=== PATIENT | female | born 1955 | race Caucasian/White ===

== ENCOUNTER 2017-01-03 11:35 | Emergency (ER) ==
[2017-01-03 11:40] VITALS: BP 164/95; TEMP 98.2; BMI 33.6
[2017-01-03 12:20] LABS: BASOPHILS # (AUTO) 0.1 K/uL (0-0.2); BASOPHILS % (AUTO) 0.9 % (0.0-3.0); EOSINOPHILS # (AUTO) 0.5 K/ul (0.0-0.7); EOSINOPHILS % (AUTO) 5.8 % (0.0-7.0); HEMATOCRIT 33.1 % (37.0-47.0); HEMOGLOBIN 11.2 g/dl (12.0-16.0); IMMATURE GRANULOCYTE % (AUTO) 3.9 % (0.0-5.0); LYMPHOCYTES # (AUTO) 1.9 K/uL (0.60-3.4); LYMPHOCYTES % (AUTO) 24.2 (10.0-50.0); MEAN CORPUSCULAR HEMOGLOBIN 31.1 pg (27.0-31.0); MEAN CORPUSCULAR HGB CONC 33.8 (31.8-35.4); MEAN CORPUSCULAR VOLUME 91.9 fl (81.0-99.0); MONOCYTES # (AUTO) 0.7 K/uL (0.4-2.0); MONOCYTES % (AUTO) 9.3 (0-10); NEUTROPHILS # (AUTO) 4.3 K/ul (2.0-6.9); NEUTROPHILS % (AUTO) 55.9; PLATELET COUNT 270 10^3/uL (140-440); WHITE BLOOD COUNT 7.74 K/ul (4.6-10.2)
--- NOTE | 2017-01-03 12:32 | DI ---
EXAM: CHEST FRONTAL AND LATERAL VIEWS HISTORY: Cough. COMPARISON: 06/08/2012 FINDINGS: Heart size and mediastinal contour remain within normal limits. Left calcified granulom a. No acute infiltrates are seen. There is no consolidation, visible pleural fluid or pneumothorax. Bones reveal no acute fracture. IMPRESSION: No acute cardiopulmonary process.
[2017-01-03 12:43] LABS: BILIRUBIN,URINE Negative (NEGATIVE); KETONES,URINE Negative (NEGATIVE); LEUKOCYTE ESTERASE ,URINE 1+ (NEGATIVE); NITRITE,URINE Positive (NEGATIVE); PROTEIN,URINE Negative (NEGATIVE); URINE, BLOOD Negative (NEGATIVE)
[2017-01-03 12:47] LABS: ADD URINE MICROSCOPIC YES
[2017-01-03 12:48] LABS: BACTERIA,URINE 1+ (NOT PRESENT)
[2017-01-03 12:51] LABS: ALANINE AMINOTRANSFERASE 18 U/L (12-78); ALBUMIN 3.5 g/dL (3.4-5.0); ALKALINE PHOSPHATASE 65 U/L (53-141); ANION GAP 15.9; ASPARTATE AMINO TRANSFERASE 10 U/L (15-37); BILIRUBIN,TOTAL 0.21 mg/dL (0.00-1.20); BLOOD UREA NITROGEN 30 mg/dL (7-18); BUN/CREATININE RATIO 23.07; CALCIUM 10.3 mg/dL (8.2-10.2); CARBON DIOXIDE 32 mmol/L (23-31); CHLORIDE 94 mmol/L (98-107); CREATINE KINASE 60 U/L; GLUCOSE 460 mg/dL (82-115); POTASSIUM 3.9 mmol/L (3.5-5.10); SODIUM 138 mmol/L (136-145)
[2017-01-03] MEDS ORDERED: ROCEPHIN IM STA (13:05)
[2017-01-03] MEDS ORDERED: LIDOCAINE 1 % AMP 5 ML (SUTURES) IM STA (13:05)
[2017-01-03] MEDS ORDERED: HUMULIN R SUBCUT STA (13:06)
--- NOTE | 2017-01-03 13:11 | ED.PDOC ---
General ED Provider: Dr. BINTA SHRESTHA Chief Complaint: Diabetes Stated Complaint: diabetes Time Seen by Physician: 11:45 Mode of Arrival: Walk-In Information Source: Patient, Family Exam Limitations: No limitations Primary Care Provider: SANJIV MACDONALD Nursing and Triage Documentation Reviewed and Agree: Yes Endocrine Complaint Exam - Diabetic Complication Complaint/Exam Onset/Duration: this morning Symptoms Are: Still present Timing: Constant Initial Severity: Moderate Current Severity: Moderate Character: Alert Aggravating: Reports: None Alleviating: Reports: None Associated Signs and Symptoms: Denies: Decreased LOC, Polydipsia, Polyuria, Polyphagia, Weight loss, Abdominal pain, Nausea, Vomiting, Fever, Diaphoresis, Fruity breath Related History: Reports: Similar episode Cardiac Risk Factors: Reports: Hypertension CVA Risk Factors: Reports: Hypertension Serious Bacterial Infection Risk Factors: Reports: None Acetone on Breath: No Dry Mucous Membranes: No Kussmaul Respirations: No Glascow Coma Scale (see protocol): 15 Meningeal Signs: No Focal Weakness: None Focal Sensory Loss: None Gait: Normal Nystagmus Present: No Gag Reflex Present: Yes Finger to Nose: Normal Babinski Sign: Negative Right, Negative Left Differential Diagnoses: Diabetic Ketoacidosis, Hyperosmolar State, Pneumonia, Other (uti) Review of Systems - Review Of Systems Constitutional: Reports: No symptoms Eyes: Reports: No symptoms Ears, Nose, Mouth, Throat: Reports: No symptoms Respiratory: Reports: No symptoms Cardiac: Reports: No symptoms GI: Reports: No symptoms : Reports: Frequency, Urgency Musculoskeletal: Reports: No symptoms Skin: Reports: No symptoms Neurological: Reports: No symptoms Endocrine: Reports: No symptoms Hematologic/Lymphatic: Reports: No symptoms All Other Systems: Reviewed and Negative Past Medical History - Past Medical History Endocrine: Reports: DM 2 Cardiovascular: Reports: Hypertension, Other (RAPID HEART RATE) Respiratory: Reports: Asthma Hematological: Reports: Anemia Gastrointestinal: Reports: None Genitourinary: Reports: None Neuro/Psych: Reports: Anxiety, Depression, Other (RAPID HEART RATE/NEUROPATHY) Musculoskeletal: Reports: None Cancer: Reports: Other Last Menstrual Period: n/a - Surgical History General Surgical History: Reports: Tubal ligation, Orthopedic (carpaltunnel), Hernia Repair (HERNIA REPAIR (UMBILICAL)), Other (dental) - Family History Family History: Reports: Unknown - Social History Smoking Status: Never smoker Hx Substance Use: No Alcohol Screening: None Physical Exam - Physical Exam Appearance: Well-appearing, No pain distress, Well-nourished Eyes: GARRETT, EOMI, Conjunctiva clear ENT: Ears normal, Nose normal, Oropharynx normal Respiratory: Airway patent, Breath sounds clear, Breath sounds equal, Respirations nonlabored Cardiovascular: RRR, Pulses normal, No rub, No murmur GI/: Soft, Nontender, No masses, Bowel sounds normal, No Organomegaly Musculoskeletal: Normal strength, ROM intact, No edema, No calf tenderness Skin: Warm, Dry, Normal color Neurological: Sensation intact, Motor intact, Reflexes intact, Cranial nerves intact, Alert, Oriented Psychiatric: Affect appropriate, Mood appropriate Critical Care Note - Critical Care Note Total Time (mins): 0 Course - Course Hematology/Chemistry: 01/03/17 12:10 01/03/17 12:10 Orders, Labs, Meds: Lab Review 01/03/17 01/03/17 12:10 12:30 WBC 7.74 RBC 3.60 L Hgb 11.2 L Hct 33.1 L MCV 91.9 MCH 31.1 H MCHC 33.8 RDW Coeff of Roberto 13.4 Plt Count 270 Immature Gran % (Auto) 3.9 Neut % (Auto) 55.9 Lymph % (Auto) 24.2 Pettis % (Auto) 9.3 Eos % (Auto) 5.8 Baso % (Auto) 0.9 Immature Gran # (Auto) 0.3 Neut # 4.3 Lymph # 1.9 Pettis # 0.7 Eos # 0.5 Baso # 0.1 Sodium 138 Potassium 3.9 Chloride 94 L Carbon Dioxide 32 H Anion Gap 15.9 BUN 30 H Creatinine 1.30 Estimated GFR (MDRD) 42.00 BUN/Creatinine Ratio 23.07 Glucose 460 H Calcium 10.3 H Total Bilirubin 0.21 AST 10 L ALT 18 Alkaline Phosphatase 65 Total Creatine Kinase 60 Troponin I < 0.0100 Total Protein 7.0 Albumin 3.5 Globulin 3.5 Albumin/Globulin Ratio 1.00 Urine Color Yellow Urine Clarity Clear Urine pH 5.0 Ur Specific [place] 1.010 Urine Protein Negative Urine Glucose (UA) Negative Urine Ketones Negative Urine Blood Negative Urine Nitrite Positive Urine Bilirubin Negative Urine Urobilinogen 0.2 Ur Leukocyte Esterase 1+ Urine Microscopic RBC 2-5 Urine Microscopic WBC 10-20 Ur Squamous Epith Cells 2-5 Urine Bacteria 1+ Orders Category Date Time Status EKG-(ED ONLY) Stat CARDIO 01/03/17 12:05 Ordered CBC W/ AUTO DIFF Stat LAB 01/03/17 12:05 Ordered COMPREHENSIVE METABOLIC PANEL Stat LAB 01/03/17 12:05 Ordered CREATINE KINASE Stat LAB 01/03/17 12:05 Ordered TROPONIN I Stat LAB 01/03/17 12:05 Ordered URINALYSIS C & S IF INDICATED Stat LAB 01/03/17 12:05 Uncollected URINE CULTURE Stat LAB 01/03/17 12:48 Received Ceftriaxone Sodium [Rocephin] MEDS 01/03/17 13:05 Stat 1 gm IM ONCE STA Insulin Regular, Human [Humulin R] MEDS 01/03/17 13:06 Stat See Protocol SUBCUT ONCE STA Lidocaine HCl/Pf [Lidocaine 1 % Amp 5 ml (Sutures)] MEDS 01/03/17 13:05 Stat 2.1 ml IM ONCE STA CHEST, 2 VIEWS PA & LAT Stat RADS 01/03/17 12:05 Ordered Medications Discontinued Medications Generic Name Dose Route Start Last Admin Trade Name Shashank PRN Reason Stop Dose Admin Ceftriaxone Sodium 1 gm 01/03/17 13:05 Rocephin IM 01/03/17 13:06 ONCE STA Insulin Human Regular 0 unit 01/03/17 13:06 Humulin R SUBCUT 01/03/17 13:07 ONCE STA Protocol Lidocaine HCl 2.1 ml 01/03/17 13:05 Lidocaine 1 % Amp 5 Ml (Sutures) IM 01/03/17 13:06 ONCE STA Vital Signs: Temp Pulse Resp BP Pulse Ox 01/03/17 11:37 98.2 F 100 H 20 164/95 H 96 Departure - Departure Time of Disposition: 13:10 Disposition: HOME SELF-CARE Discharge Problem: Diabetes mellitus, Urinary tract infection Instructions: Type 1 Diabetes in Adults (ED), Urinary Tract Infection in Women (ED) Condition: Good Pt referred to PMD for follow-up: No Additional Instructions: Please call your Family Physician as soon as possible to schedule a follow-up appointment.start meds in AM Prescriptions: Sulfamethoxazole/Trimethoprim [Bactrim Ds Tablet] 1 each PO BID #10 tablet Allergies/Adverse Reactions: Allergies codeine Adverse Reaction (Verified 01/03/17 11:41) morphine Adverse Reaction (Verified 01/03/17 11:41) promethazine HCl [From Phenergan] Adverse Reaction (Verified 01/03/17 11:41) Home Medications: Ambulatory Orders Albuterol Sulfate [Proair Hfa] 2 puff IH QID PRN 07/12/13 Diltiazem HCl [Diltiazem ER] 60 mg PO BID 07/12/13 Diphenhydramine HCl [Benadryl] 25 mg PO Q6H PRN 07/12/13 Gabapentin 600 mg PO QID 07/12/13 Hydrocodone/Acetaminophen [Hydrocodon-Acetaminophn 10-325] 1 tab PO Q6HR PRN Lorazepam [Ativan] 1 mg PO BID PRN 07/12/13 Metformin HCl [Glucophage] 500 mg PO BIDWM 07/12/13 Prochlorperazine Maleate [Compazine] 1 tab PO BID PRN 07/12/13 Sennosides/Docusate Sodium [Senna S Tablet] 1 tab PO DAILY 07/12/13 Albuterol Sulfate 0.083% Neb [Albuterol 0.083% Neb] 1 vial NEB RTQ4H 01/03/17 Azelastine HCl [Astelin 0.1%] 2 spray NS BID 01/03/17 Cyclobenzaprine HCl [Flexeril] 10 mg PO TID PRN 01/03/17 Fluticasone Propionate [Flonase] 2 spray NS DAILY 01/03/17 Furosemide 40 mg PO BID 01/03/17 Levothyroxine Sodium [Synthroid] 150 mcg PO DAILY 01/03/17 Losartan/Hydrochlorothiazide [Hyzaar 100-25 Tablet] 1 each PO DAILY 01/03/17 Meloxicam 15 mg PO DAILY 01/03/17 Nizatidine 150 mg PO BID 01/03/17 Olmesartan/Hydrochlorothiazide [Olmesartan-Hctz 40-25 mg Tab] 1 each PO DAILY Ondansetron HCl [Zofran] 4 mg PO Q8H PRN 01/03/17 Orphenadrine Citrate 100 mg PO BID 01/03/17 Sulfamethoxazole/Trimethoprim [Bactrim Ds Tablet] 1 each PO BID #10 tablet 01/03 Tramadol HCl 50 mg PO BID 01/03/17 Disposition Discussed With: Patient, Family
== END 2017-01-03 13:40 | disposition home or self-care (01) ==
LOC: ED 11:35
DX: D64.9 Anemia, unspecified (principal); E11.65 Type 2 diabetes mellitus with hyperglycemia; N39.0 Urinary tract infection, site not specified; I10 Essential (primary) hypertension; Z79.899 Other long term (current) drug therapy
CPT/HCPCS: 36415; 80053; 81001; 82550; 84484; 85025; 87086; 87186; 93005; 93010; 96372; 99283

== ENCOUNTER 2017-02-17 15:00 | Outpatient (RCR) ==
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
--- NOTE | 2017-02-04 15:36 | RS.OPPTDN ---
Subjective Date of Note: 02/04/17 Visit #: 3 Date of Evaluation: 01/27/17 Payer Source: Medicaid Treatment Diagnosis: Neck, shoulder, and back pain Current Subjective/complaints:: Patient says she "hurts like hell." Reports she hurts all over. Says she has been at [employer] for [employer]. She says she has to return later on for services on Tuesday. Pain Assessment - Pain Description Pain Location: neck, shoulder, back Current Pain Intensity: 7-9/10 - Heat/Cryotherapy Treatment: Hot Pack (20 mins to the neck and mid to low back in sitting.) Interventions - Exercise/Activities/Manual Therapy Exercises/Activities: [id number] Assisted patient with mobility and stretching exercise. Scapular retraction, shoulder shrugs, and scapular stretch with UE across midline. Isometric cervical retraction, multiple reps. In supine, assisted hamstring stretch, isometric hip adduction, and abdominal sets. In standing, red theraband for scapular retraction. Reviewed dx, body mechanics, postural strengthening, and HEP. Manual Therapy: NA HOME EXERCISE PROGRAM: Scap retraction, shoulder shrugs, cervical lateral flexion and UE across midline stretch. Isometric cervical retraction. Isometric hip add. Hamstring stretching. 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 She often reports, "You're killing me" during gentle stretching. She applies only very little resistance with isometrics. She bounces with isometric hip flexion. Ambulation is not antalgic and has full Cspine motion during SB and rotation. Patient Education: Education of diagnosis, Body/Joint mechanics, Home Exercise Program, Home Safety, Activity Modification, Education of Plan of Care Short Term Goals Goal #1: Pt independent in basic HEP. Goal to be met by: 02/14/17 Progress towards Goal:: Progressing Goal #2: Pt to demonstrate improved postural awareness. Goal to be met by: 02/14/17 Goal #3: Patient to reports minimal tenderness throughout the upper traps. Goal to be met by: 02/14/17 Progress towards Goal:: Progressing Senior Care Goals Goal #1: Score on Neck Disability index improved to 28. Goal to be met by: 03/12/17 Goal #2: Pt able to perform selfcare and light ADL's with minimal neck and back pain Goal to be met by: 03/12/17 Progress towards goal: Progressing Goal #3: Pt knows HEP and to continue ex's to maintain functional level at [place]. Goal to be met by: 03/12/17 Goal #4: Pt will tolerate walking community distances with minimal low back pain. Goal to be met by: 03/12/17 Plan PLAN OF CARE EXPIRES ON:: 03/12/17 ORDER # VISITS AND/OR THROUGH DATE: 03/12/17 PLAN: Continue Plan of Care
--- NOTE | 2017-02-08 15:40 | RS.OPPTDN ---
Subjective Date of Note: 02/08/17 Visit #: 4 Date of Evaluation: 01/27/17 Payer Source: Medicaid Treatment Diagnosis: Neck, shoulder, and back pain Current Subjective/complaints:: Patient says she hurts no matter what. Says pain meds do not help. She says that the only thing that helps is taking pain meds along with a Tylenol and sleep. Pain Assessment - Pain Description Pain Location: neck, shoulder, back Current Pain Intensity: 7-9/10 - Heat/Cryotherapy Treatment: Hot Pack (20 mins to the mid to low back and the cervical in sitting ) Interventions - Exercise/Activities/Manual Therapy Exercises/Activities: [id number] Assisted patient with mobility and stretching exercise. Cspine passive stretcing for SB and rotation. Scapular retraction with red tband, bilateral shoulder ER with red tband, shoulder shrugs, and scapular stretch with UE across midline. Isometric cervical retraction, cervical SB multiple reps. In supine, assisted hamstring stretch, Piriformis and trunk rotation, isometric hip adduction, isometric hip flexion, alternate LE lift. In standing, red theraband for scapular retraction. Reviewed dx, body mechanics, postural strengthening, and HEP. Manual Therapy: NA HOME EXERCISE PROGRAM: Scap retraction, shoulder shrugs, cervical lateral flexion and UE across midline stretch. Isometric cervical retraction. Isometric hip add. Hamstring stretching. - Charges Total Direct Minutes: 28 Total Treatment Time: 48 Procedures billed for this date of service:: hp, ex2 Assessment: Patient continues with mod to severe back and neck pain. She recalls no reduction with therex or pain medication, only through sleeping. She grimaces with nearly all therex. She does demo improved flexibility regarding HS bilaterally. Discussed how to perform self stretching and encouraged her to continue HEP. Patient Education: Education of diagnosis, Body/Joint mechanics, Home Exercise Program, Home Safety, Activity Modification, Education of Plan of Care Patient demonstrates compliance with HEP?: Yes Short Term Goals Goal #1: Pt independent in basic HEP. Goal to be met by: 02/14/17 Progress towards Goal:: Progressing Goal #2: Pt to demonstrate improved postural awareness. Goal to be met by: 02/14/17 Goal #3: Patient to reports minimal tenderness throughout the upper traps. Goal to be met by: 02/14/17 Progress towards Goal:: Progressing Retirement Goals Goal #1: Score on Neck Disability index improved to 28. Goal to be met by: 03/12/17 Goal #2: Pt able to perform selfcare and light ADL's with minimal neck and back pain Goal to be met by: 03/12/17 Progress towards goal: Progressing Goal #3: Pt knows HEP and to continue ex's to maintain functional level at [place]. Goal to be met by: 03/12/17 Goal #4: Pt will tolerate walking community distances with minimal low back pain. Goal to be met by: 03/12/17 Plan PLAN OF CARE EXPIRES ON:: 03/12/17 ORDER # VISITS AND/OR THROUGH DATE: 03/12/17 PLAN: Progress Exercises
--- NOTE | 2017-02-10 15:39 | RS.OPPTDN ---
Subjective Date of Note: 02/10/17 Visit #: 5 Date of Evaluation: 01/27/17 Payer Source: Medicaid Treatment Diagnosis: Neck, shoulder, and back pain Current Subjective/complaints:: Patient says she may be feeling a little better. Her says that he has seen her walk and "move around" better. He says she is doing better than what she says. Pain Assessment - Pain Description Pain Location: neck, shoulder, back Current Pain Intensity: "It's not hurting as bad as last time." - Heat/Cryotherapy Treatment: Hot Pack (cervical and mid to lumbar in sitting x 20) Interventions - Exercise/Activities/Manual Therapy Exercises/Activities: [id number] Assisted patient with mobility and stretching exercise. Cspine passive stretcing for SB and rotation. Scapular retraction with red tband, bilateral shoulder ER with red tband, shoulder shrugs, and scapular stretch with UE across midline. Isometric cervical retraction, cervical SB multiple reps. In supine, assisted hamstring stretch, Piriformis and trunk rotation, Piriformis, isometric hip adduction/abd, isometric hip flexion, alternate LE lift. In standing, red theraband for scapular retraction 2 /10. Reviewed dx, body mechanics, postural strengthening, and HEP. Manual Therapy: NA HOME EXERCISE PROGRAM: Scap retraction, shoulder shrugs, cervical lateral flexion and UE across midline stretch. Isometric cervical retraction. Isometric hip add. Hamstring stretching. - Charges Total Direct Minutes: 30 Total Treatment Time: 50 Procedures billed for this date of service:: hp, ex2 Assessment: Patient does not admit as much progress as is able to observe, but does adrián increased cspine ROM during stretching as well as with demo of HS stretch. She admits to developing a SOL after 5 reps of isometric R cervical SB. All seemed to resolve with advancing to the rest of the exercises. Patient Education: Education of diagnosis, Body/Joint mechanics, Home Exercise Program, Home Safety, Activity Modification, Education of Plan of Care Patient demonstrates compliance with HEP?: Yes Short Term Goals Goal #1: Pt independent in basic HEP. Goal to be met by: 02/14/17 Progress towards Goal:: Progressing Goal #2: Pt to demonstrate improved postural awareness. Goal to be met by: 02/14/17 Progress towards Goal:: Progressing Goal #3: Patient to reports minimal tenderness throughout the upper traps. Goal to be met by: 02/14/17 Progress towards Goal:: Progressing Half-Way Goals Goal #1: Score on Neck Disability index improved to 28. Goal to be met by: 03/12/17 Goal #2: Pt able to perform selfcare and light ADL's with minimal neck and back pain Goal to be met by: 03/12/17 Progress towards goal: Progressing Goal #3: Pt knows HEP and to continue ex's to maintain functional level at [place]. Goal to be met by: 03/12/17 Goal #4: Pt will tolerate walking community distances with minimal low back pain. Goal to be met by: 03/12/17 Plan PLAN OF CARE EXPIRES ON:: 03/12/17 ORDER # VISITS AND/OR THROUGH DATE: 03/12/17 PLAN: Progress Exercises
--- NOTE | 2017-02-15 14:11 | RS.OPPTDN ---
Subjective Date of Note: 02/15/17 Visit #: 6 Date of Evaluation: 01/27/17 Payer Source: Medicaid Treatment Diagnosis: Neck, shoulder, and back pain Current Subjective/complaints:: Patient reports no significant change in pain. Rates her back and neck pain both at 7/10 today. States she feels it will have to "run it's course". She also states she has been doing yardwork. Reports feeling better after exercise. Pain Assessment - Pain Description Pain Location: neck, shoulder, back Current Pain Intensity: 7/10 neck and back pain - Heat/Cryotherapy Treatment: Hot Pack ([id number] to the neck and back prior to EX. Patient in sitting. ) Interventions - Exercise/Activities/Manual Therapy Exercises/Activities: [id number] Assisted patient with mobility and stretching exercise. Cspine passive stretcing for SB and rotation. Scapular retraction increased to green tband, bilateral shoulder ER with red tband, shoulder shrugs , and scapular stretch with UE across midline. Isometric cervical retraction, cervical SB multiple reps. In supine, assisted hamstring stretch, Piriformis and trunk rotation. Isometric hip flexion, isometric hip add, and alternate LE lift. SLR. Bridging. In standing, green theraband for scapular retraction 2/10. Reviewed dx, body mechanics, postural strengthening, and HEP. Total minutes of Exercise: 25mins Manual Therapy: NA HOME EXERCISE PROGRAM: Scap retraction, shoulder shrugs, cervical lateral flexion and UE across midline stretch. Isometric cervical retraction. Isometric hip add. Hamstring stretching. Green theraband for scapular retraction. Bridging. - Charges Total Direct Minutes: 25mins Total Treatment Time: 45mins Procedures billed for this date of service:: HP, EX2 Assessment: Patient progressing well with exercise. She reports doing more yardwork and using pressure-washer. Patient Education: Home Exercise Program Patient demonstrates compliance with HEP?: Yes Short Term Goals Goal #1: Pt independent in basic HEP. Goal to be met by: 02/14/17 Progress towards Goal:: Met Goal #2: Pt to demonstrate improved postural awareness. Goal to be met by: 02/14/17 Progress towards Goal:: Progressing Goal #3: Patient to reports minimal tenderness throughout the upper traps. Goal to be met by: 02/14/17 Progress towards Goal:: Progressing Social Worker Palliative Care Goals Goal #1: Score on Neck Disability index improved to 28. Goal to be met by: 03/12/17 Goal #2: Pt able to perform selfcare and light ADL's with minimal neck and back pain Goal to be met by: 03/12/17 Progress towards goal: Progressing Goal #3: Pt knows HEP and to continue ex's to maintain functional level at [place]. Goal to be met by: 03/12/17 Goal #4: Pt will tolerate walking community distances with minimal low back pain. Goal to be met by: 03/12/17 Plan PLAN OF CARE EXPIRES ON:: 03/12/17 ORDER # VISITS AND/OR THROUGH DATE: 03/12/17 PLAN: Continue Plan of Care
--- NOTE | 2017-02-17 16:34 | RS.OPPTDN ---
Subjective Date of Note: 02/17/17 Visit #: 7 Date of Evaluation: 01/27/17 Payer Source: Medicaid Treatment Diagnosis: Neck, shoulder, and back pain Current Subjective/complaints:: Patient reports felling some better today. States she is working on exercises as instructed. Pain Assessment - Pain Description Pain Location: neck, shoulder, back Current Pain Intensity: mod neck and back pain - Heat/Cryotherapy Treatment: Hot Pack ([id number] to neck and lowback prior to EX. Patient in sitting. ) Interventions - Exercise/Activities/Manual Therapy Exercises/Activities: [id number] Assisted patient with mobility and stretching exercise. Cervical spine passive stretcing for SB and rotation. Scapular retraction green tband, 3s/10reps. Shoulder shrugs, and scapular stretch with UE across midline. Isometric cervical retraction, cervical lateral isometrics multiple sets of 5 reps. In supine, assisted hamstring stretch, Piriformis and trunk rotation. Isometric hip flexion, isometric hip add, and alternate LE lift. SLR. Green theraband for resistive hip abd in hook-lying. Controlled trunk rotation with ball between knees. Double LE lift with ball between knees for core strengthening, 5reps. Reviewed body mechanics, postural strengthening, safety, and HEP. Total minutes of Exercise: 25mins Manual Therapy: NA HOME EXERCISE PROGRAM: Scap retraction, shoulder shrugs, cervical lateral flexion and UE across midline stretch. Isometric cervical retraction. Isometric hip add. Hamstring stretching. Green theraband for scapular retraction. Bridging. - Charges Total Direct Minutes: 25mins Total Treatment Time: 45mins Procedures billed for this date of service:: HP, EX2 Assessment: Patient responding to exercise and progressing with core strengthening. Patient Education: Body/Joint mechanics, Home Exercise Program, Home Safety Patient demonstrates compliance with HEP?: Yes Short Term Goals Goal #1: Pt independent in basic HEP. Goal to be met by: 02/14/17 Progress towards Goal:: Met Goal #2: Pt to demonstrate improved postural awareness. Goal to be met by: 02/14/17 Progress towards Goal:: Progressing Goal #3: Patient to reports minimal tenderness throughout the upper traps. Goal to be met by: 02/14/17 Progress towards Goal:: Progressing Gas Pit Worker Goals Goal #1: Score on Neck Disability index improved to 28. Goal to be met by: 03/12/17 Goal #2: Pt able to perform selfcare and light ADL's with minimal neck and back pain Goal to be met by: 03/12/17 Progress towards goal: Progressing Goal #3: Pt knows HEP and to continue ex's to maintain functional level at [place]. Goal to be met by: 03/12/17 Goal #4: Pt will tolerate walking community distances with minimal low back pain. Goal to be met by: 03/12/17 Plan PLAN OF CARE EXPIRES ON:: 03/12/17 ORDER # VISITS AND/OR THROUGH DATE: 03/12/17 PLAN: Continue Plan of Care
== END 2017-02-20 ==
PROVIDERS: ATTEND Family Medicine
DX: M54.2 Cervicalgia (principal); M54.9 Dorsalgia, unspecified; G89.29 Other chronic pain

== ENCOUNTER 2017-02-24 15:00 | Outpatient (RCR) ==
--- NOTE | 2017-02-22 16:37 | RS.OPPTDN ---
Subjective Date of Note: 02/22/17 Visit #: 8 Date of Evaluation: 01/27/17 Payer Source: Medicaid Treatment Diagnosis: Neck, shoulder, and back pain Current Subjective/complaints:: Patient says she is doing well with stretches at home. She says she is able to do them much easier and feels she is stronger. Her adds he is able to see improvement in her neck motion. Pain Assessment - Pain Description Pain Location: neck, shoulder, back Pain Description: C/o migraine yesterday that was nearly unbearable Current Pain Intensity: mod neck and back pain - Heat/Cryotherapy Treatment: Hot Pack (cervical and mid to low back in sitting x 20) Interventions - Exercise/Activities/Manual Therapy Exercises/Activities: [id number] Assisted patient with mobility and stretching exercise. Cervical spine passive stretcing for SB and rotation. Scapular retraction green tband, 3s/10reps. Shoulder shrugs, and scapular stretch with UE across mi,dline. Isometric cervical retraction, cervical lateral isometrics multiple sets of 5 reps. In supine, assisted hamstring stretch, Piriformis, fig 4 and trunk rotation. Isometric hip flexion, isometric hip add, and alternate LE lift. SLR. Green theraband for resistive hip abd in hook-lying. Controlled trunk rotation with ball between knees. Double LE lift with ball between knees for core strengthening, [id number]. Reviewed body mechanics, postural strengthening, safety, and HEP. Manual Therapy: NA HOME EXERCISE PROGRAM: Scap retraction, shoulder shrugs, cervical lateral flexion and UE across midline stretch. Isometric cervical retraction. Isometric hip add. Hamstring stretching. Green theraband for scapular retraction. Bridging. - Charges Total Direct Minutes: 25 Total Treatment Time: 45 Procedures billed for this date of service:: hp, ex2 Assessment: Patient alvaro improved ease and adrián with all stretches for cspine and back. She is able to progress with trunk strengthening well and provide increased resistance during isometrics particularly with isometric hip abd. Isometric hip flexion did produce some cramping to the R hamstring, but quickly eased with rest. Patient Education: Education of diagnosis, Body/Joint mechanics, Home Exercise Program, Home Safety, Activity Modification, Education of Plan of Care Patient demonstrates compliance with HEP?: Yes Short Term Goals Goal #1: Pt independent in basic HEP. Goal to be met by: 02/14/17 Progress towards Goal:: Met Goal #2: Pt to demonstrate improved postural awareness. Goal to be met by: 02/14/17 Progress towards Goal:: Progressing Goal #3: Patient to reports minimal tenderness throughout the upper traps. Goal to be met by: 02/14/17 Progress towards Goal:: Progressing Custodial Goals Goal #1: Score on Neck Disability index improved to 28. Goal to be met by: 03/12/17 Goal #2: Pt able to perform selfcare and light ADL's with minimal neck and back pain Goal to be met by: 03/12/17 Progress towards goal: Progressing Goal #3: Pt knows HEP and to continue ex's to maintain functional level at [place]. Goal to be met by: 03/12/17 Goal #4: Pt will tolerate walking community distances with minimal low back pain. Goal to be met by: 03/12/17 Plan PLAN OF CARE EXPIRES ON:: 03/12/17 ORDER # VISITS AND/OR THROUGH DATE: 03/12/17 PLAN: Progress Exercises
--- NOTE | 2017-02-24 16:34 | RS.OPPTDN ---
Subjective Date of Note: 02/24/17 Visit #: 9 Date of Evaluation: 01/27/17 Payer Source: Medicaid Treatment Diagnosis: Neck, shoulder, and back pain Current Subjective/complaints:: Patient reports back pain is about the same. States she feels it will "just have to run it's course". She reports continuing to work on HEP and increasing all work around her home and at [employer]. She discusses lifting with house and yardwork. Pain Assessment - Pain Description Pain Location: neck, shoulder, back Pain Description: C/o migraine yesterday that was nearly unbearable Current Pain Intensity: mod Other Comments regarding Pain:: Reports neck and back pain are not bad today, but average around 5/10 depending on activity. - Heat/Cryotherapy Treatment: Hot Pack ([id number] to neck and back prior to EX. patient in sitting. ) Interventions - Exercise/Activities/Manual Therapy Exercises/Activities: [id number] Assisted patient with mobility and stretching exercise. Cervical spine passive stretcing for SB and rotation. Shoulder shrugs. Isometric cervical retraction. In supine, assisted hamstring stretch, SKTC, piriformis, fig 4 and trunk rotation. Isometric hip flexion, isometric hip add, and alternate LE lift. SLR. Blue theraband for resistive hip abd and hip add in hook-lying. All 2s/10reps each. Controlled trunk rotation with ball between knees. Double LE lift with ball between knees for core strengthening. Performs overhead shoulder flexion with 3# wand and isometric hip add. Reviewed body mechanics, postural strengthening, safety, and HEP. Patient given additional theraband for progression with HEP. Total minutes of Exercise: 25mins Manual Therapy: NA HOME EXERCISE PROGRAM: Scap retraction, shoulder shrugs, cervical lateral flexion and UE across midline stretch. Isometric cervical retraction. Isometric hip add. Hamstring stretching. Green theraband for scapular retraction. Bridging. - Charges Total Direct Minutes: 25mins Total Treatment Time: 45mins Procedures billed for this date of service:: HP, EX2 Assessment: Patient has progressed with functional activities at home and in community. She continues to report moderate pain, but will continue HEP following discharge. Patient Education: Body/Joint mechanics, Home Exercise Program, Activity Modification, Education of Plan of Care Comments: Reviewed dx, body mechanics, safety with lifting, and HEP. Patient demonstrates compliance with HEP?: Yes Short Term Goals Goal #1: Pt independent in basic HEP. Goal to be met by: 02/14/17 (100%) Progress towards Goal:: Met Goal #2: Pt to demonstrate improved postural awareness. Goal to be met by: 02/14/17 (100%) Progress towards Goal:: Met Goal #3: Patient to reports minimal tenderness throughout the upper traps. Goal to be met by: 02/14/17 Progress towards Goal:: Progressing Productivity Engineer Goals Goal #1: Score on Neck Disability index improved to 28. Goal to be met by: 03/12/17 Progress towards goal: Progressing Goal #2: Pt able to perform selfcare and light ADL's with minimal neck and back pain Goal to be met by: 03/12/17 Progress towards goal: Progressing Comments: Performs all basic ADL's. Goal #3: Pt knows HEP and to continue ex's to maintain functional level at [place]. Goal to be met by: 03/12/17 Progress towards goal: Met Goal #4: Pt will tolerate walking community distances with minimal low back pain. Goal to be met by: 03/12/17 Progress towards goal: Progressing Comments: Able to go community distances as needed with mod discomfort. Plan PLAN OF CARE EXPIRES ON:: 03/12/17 ORDER # VISITS AND/OR THROUGH DATE: 03/12/17 PLAN: Plan for Discharge (Will plan discharge at this time as patient has progressed with HEP and met some treatment goals, but is at a plateau in progress with pain reduction. She will continue HEP following discharge.)
--- NOTE | 2017-03-23 15:41 | RS.QUICKDC ---
Discharge from PT Date of Discharge: 02/24/17 Number of Visits: 9 Reason for Discharge: Patient progressed with treatment. She progressed with all and met 3 of 8 goals. She was reaching a plateau in progress and agreed to continue HEP following discharge. Discharge at this time.
== END 2017-03-23 ==
PROVIDERS: ATTEND Family Medicine
DX: M54.2 Cervicalgia (principal); M54.9 Dorsalgia, unspecified; M25.519 Pain in unspecified shoulder

== ENCOUNTER 2017-08-15 11:54 | Outpatient (CLI) ==
--- NOTE | 2017-08-15 15:22 | MRI ---
EXAM: MRI lumbar spine without and with IV contrast. DATE: 15 August 2017. HISTORY: Mass in the subcutaneous tissues of the back. Patient has history of bone, thyroid, and es ophageal cancers. TECHNIQUE: Sagittal and axial T1W, T2W, and T1W postcontrast sequences of the lumbar spine along wit h sagittal IR and coronal T2W sequences were obtained using 1.2 Opal magnet. Skin markers have been placed in the regions of interest in the lower back. CONTRAST: Omniscan - 16 ml IV. COMPARISON: MRI L-spine 19 July 2013. FINDINGS: There are five [id number] lumbar vertebra. No lumbar scoliosis is evident. A 6.5 mm anterior subluxation of L4 relative to L5 appears to be due to facet disease. No other subluxation, acute fracture, osseous malignancy, or pars interarticularis defect is demonstrated. Minor anterior wedge appearance of the T11 vertebral body is chronic. Lumbar vertebra are normal in height. T2W/T 1W bright, 8.6 x 8 x 12.5 mm focus in the L4 body is likely a benign hemangioma. Previously identifi ed T2W/T1W bright focus in the L1 vertebral body is less well visualized on the current examination. Chronic, moderate Schmorl's node is seen at the T11 superior endplate. Moderate disc space narrowin g and disc desiccation are detected at L4-5. No sacral fracture or stress reaction is evident. SI j oints are unremarkable. Conus medullaris terminates at L1. Visible spinal cord is normal. No abnor mal contrast enhancement is identified within the spinal cord, nerve roots, vertebral bodies, or inte rvertebral discs. No retroperitoneal lymphadenopathy, paraspinal mass, or aortic aneurysm is demonstrated. Psoas muscl es are normal. There is mild bilateral posterior paraspinal muscle atrophy. Visible portions of the liver, spleen, and adrenal glands are normal. A T2W bright, T1W dark, 6.2 mm focus in the anterolat eral cortex midzone right kidney. 2.5 mm subcapsular focus in the lateral cortex upper pole left kid jailyn on axial image #8 is too small to characterize.. Segmental analysis: T11-12: Minor posterior disc bulge does not cause cord compression, central stenosis, or foraminal s tenosis. T12-L1: Minor posterior disc bulge does not cause cord compression, central stenosis or foraminal st enosis. L1-2: Small posterior disc bulge and minor facet arthropathy cause triangulation of the canal. Each foramen is patent. L2-3: Minor posterior to foraminal disc bulge, mild bilateral facet arthropathy, and mild ligamentum flavum hypertrophy cause mild central canal stenosis, minor right foramen narrowing, and mild left f oraminal stenosis. L3-4: Minor posterior to foraminal disc bulge, mild facet arthropathy, mild ligamentum flavum hypert rophy, and abundant dorsal epidural fat cause moderate central canal stenosis and minor left foramina l encroachment. L4-5: Grade 1 anterolisthesis of L4, pseudodisc bulge, marked bilateral facet arthropathy and modera te ligamentum flavum hypertrophy cause severe central canal stenosis, mild right foraminal stenosis, and moderate left foraminal stenosis. Each L4 nerve root contacts the disc bulge at the foramen. Th ere is mild bilateral lateral recess stenosis near the L5 superior endplate. L5-S1: Minor posterior disc bulge does not cause central stenosis or foraminal stenosis. Thecal sac is substantially narrowed due to abundant epidural fat. IMPRESSIONS: 1. Lumbar spine multilevel facet arthropathy (especially L4-5), L4-5 subluxation, and multilevel DDD - - overall mildly worse disc disease compared to June 2013. 2. Multilevel foraminal stenoses. Each L4 nerve root contacts the disc bulge near the foramen, and could be sources for pain/radiculopathy. 3. Multilevel central canal stenoses (L1-2: Minor L2-3: Mild. L3-4: Moderate. L4-5: Severe). 4. Spinal lipomatosis at L5-S1 and the sacral canal. 5. Probable benign hemangiomas at L1, and L4. 6. Right kidney benign-appearing cortical cyst.
== END 2017-08-15 11:55 | disposition home or self-care (01) ==
LOC: RAD 11:54
PROVIDERS: ATTEND Family Medicine
DX: R22.2 Localized swelling, mass and lump, trunk (principal); I10 Essential (primary) hypertension

== ENCOUNTER 2017-09-06 11:00 | Outpatient (RCR) ==
--- NOTE | 2017-08-25 16:49 | RS.OPPTDN ---
Subjective Date of Note: 08/25/17 Visit #: 3 Date of Evaluation: 08/18/17 Payer Source: Medicaid Treatment Diagnosis: Low back pain Current Subjective/complaints:: Reports doing a little better. Reports no significant increased pain during exercises in supine on treatment table today. Pain Assessment - Pain Description Pain Location: lumbosacral region. Current Pain Intensity: not rated, but reports doing better - Treatment Modality: Ultrasound Parameters/Method Applied: 1.5 w/cm2 cont. X 12 mins to bilateral lumbosacral region Patient Position: Prone - Heat/Cryotherapy Treatment: Hot Pack (X 15 mins to lumbar/sacral region in prone, prior to us) Interventions - Exercise/Activities/Manual Therapy Exercises/Activities: Patient able to lay supine and tolerated HS and piriformis stretch with reports of some discomfort, but no significant increased pain. Total minutes of Exercise: X 12 mins Manual Therapy: NA HOME EXERCISE PROGRAM: None - Objective Findings Observations,measurements,etc.: Patient demonstrates more optimal gait speed, but continues to demonstrate a wide base of support. - Charges Total Direct Minutes: 24 mins Total Treatment Time: 39 mins Procedures billed for this date of service:: Hp, US, EX Assessment: Patient is now able to tolerate lying supine and tolerates gentle stretching. Reports less pain and more mobility. Patient Education: Education of diagnosis, Body/Joint mechanics, Education of Plan of Care Short Term Goals Goal #1: Pt independent in basic HEP. Goal to be met by: 08/28/17 (100%) Goal #2: Tenderness to lumbosacral region decreased to minimal. Goal to be met by: 09/01/17 Progress towards Goal:: Progressing Goal #3: Pt able to lie supine with minimal increase in discomfort. Goal to be met by: 09/01/17 Progress towards Goal:: Met Alarm Mechanism Adjuster Goals Goal #1: Pt knows HEP and to continue ex's to maintain functional level at D/C. Goal to be met by: 09/27/17 Goal #2: Score on Oswestry LBP scale improved to 42. Goal to be met by: 09/27/17 Goal #3: Pt to tolerate amb. community distances with minimal low back/sacral pain. Goal to be met by: 09/27/17 Progress towards goal: Progressing Goal #4: Pt to sleep 6 hours without interruption from low back/sacral pain. Goal to be met by: 09/27/17 Progress towards goal: Progressing Plan PLAN OF CARE EXPIRES ON:: 09/27/17 ORDER # VISITS AND/OR THROUGH DATE: 09/27/17 PLAN: Progress Exercises (Progress stretching and add ROM exercises to improve mobility)
--- NOTE | 2017-08-30 09:44 | RS.CXNS ---
Date of scheduled appointment: 08/29/17 Type: Cancel Reason for Cancel/NS: Patient ill.
--- NOTE | 2017-08-30 14:27 | RS.OPPTDN ---
Subjective Date of Note: 08/30/17 Visit #: 4 Date of Evaluation: 08/18/17 Payer Source: Medicaid Treatment Diagnosis: Low back pain Current Subjective/complaints:: Patient reports increased back pain today,she feels this is possibly due to the rainy weather. Pain Assessment - Pain Description Pain Location: lumbosacral region. Pain Description: Dull, Aching Current Pain Intensity: 8/10 - Treatment Modality: Ultrasound Parameters/Method Applied: 10 mins. to lumbosacral,continuous mode @ 1.5 w/cm2. Patient Position: Prone - Heat/Cryotherapy Treatment: Hot Pack (20 mins. to lumbar,prior to US and ex) Interventions - Exercise/Activities/Manual Therapy Exercises/Activities: 20 mins. in supine of SKTC,piriformis stretches,hamstring stretches,isometric hip flexion,abd/adduction,LTR. Total minutes of Exercise: 20 Manual Therapy: NA HOME EXERCISE PROGRAM: None - Charges Total Direct Minutes: 30 Total Treatment Time: 50 Procedures billed for this date of service:: hp,US,ex 1 Assessment: Patient has increaed LBP with LTR to R today.She has moderate tightness in bilateral hamstrings today with R > L,but this could be possibly be muscle guarding due to increased pain.She also reports L lumbar pain with L hip flexor resistance (isometrically . ) Patient Education: Education of diagnosis, Body/Joint mechanics, Home Exercise Program, Home Safety, Activity Modification, Education of Plan of Care Short Term Goals Goal #1: Pt independent in basic HEP. Goal to be met by: 08/28/17 Goal #2: Tenderness to lumbosacral region decreased to minimal. Goal to be met by: 09/01/17 Progress towards Goal:: Regressing Comments:: increased tenderness today Goal #3: Pt able to lie supine with minimal increase in discomfort. Goal to be met by: 09/01/17 Progress towards Goal:: Met [place] Goals Goal #1: Pt knows HEP and to continue ex's to maintain functional level at D/C. Goal to be met by: 09/27/17 Progress towards goal: Progressing Goal #2: Score on Oswestry LBP scale improved to 42. Goal to be met by: 09/27/17 Goal #3: Pt to tolerate amb. community distances with minimal low back/sacral pain. Goal to be met by: 09/27/17 Progress towards goal: Progressing Goal #4: Pt to sleep 6 hours without interruption from low back/sacral pain. Goal to be met by: 09/27/17 Progress towards goal: Progressing Plan PLAN OF CARE EXPIRES ON:: 09/27/17 ORDER # VISITS AND/OR THROUGH DATE: 09/27/17 PLAN: Continue PT to decrease pain and educate patient in lumbar stabilization exercises.
--- NOTE | 2017-09-01 12:14 | RS.OPPTDN ---
Subjective Date of Note: 09/01/17 Visit #: 5 Date of Evaluation: 08/18/17 Payer Source: Medicaid Treatment Diagnosis: Low back pain Current Subjective/complaints:: Patient reports her back pain is better today. States she is working on HEP. Pain Assessment - Pain Description Pain Location: lumbosacral region. Pain Description: Dull, Aching Current Pain Intensity: moderate Other Comments regarding Pain:: Reports pain is across the mid lumbar region. - Treatment Modality: Ultrasound Parameters/Method Applied: [id number] @ 1.5w/cm2 to the bilateral lumbar paraspinals prior to EX. Patient Position: Prone - Heat/Cryotherapy Treatment: Hot Pack ([id number] to the lowback. Patient in prone. ) Interventions - Exercise/Activities/Manual Therapy Exercises/Activities: 20 mins. in supine of SKTC, piriformis stretches, hamstring stretches, and LTR. Isometric hip flexion, isometric hip adduction. Pelvic tilts and modified bridge. Reveiwed safety wtih bed mob and transfers off and on table/bed. Total minutes of Exercise: 20 Manual Therapy: NA HOME EXERCISE PROGRAM: SKTC, HS stretch, LTR. Pelvic tilt. Isometric hip add, isometric hip flexion. - Charges Total Direct Minutes: 30mins Total Treatment Time: 50mins Procedures billed for this date of service:: HP, US, EX Assessment: Patient performing basic exercise without c/o increased pain or signs of distress. Patient Education: Body/Joint mechanics, Home Exercise Program, Home Safety, Activity Modification Patient demonstrates compliance with HEP?: Yes Short Term Goals Goal #1: Pt independent in basic HEP. Goal to be met by: 08/28/17 Progress towards Goal:: Met Goal #2: Tenderness to lumbosacral region decreased to minimal. Goal to be met by: 09/01/17 Progress towards Goal:: Progressing Goal #3: Pt able to lie supine with minimal increase in discomfort. Goal to be met by: 09/01/17 Progress towards Goal:: Met [facility] Goals Goal #1: Pt knows HEP and to continue ex's to maintain functional level at D/C. Goal to be met by: 09/27/17 Progress towards goal: Progressing Goal #2: Score on Oswestry LBP scale improved to 42. Goal to be met by: 09/27/17 Goal #3: Pt to tolerate amb. community distances with minimal low back/sacral pain. Goal to be met by: 09/27/17 Progress towards goal: Progressing Goal #4: Pt to sleep 6 hours without interruption from low back/sacral pain. Goal to be met by: 09/27/17 Progress towards goal: Progressing Plan PLAN OF CARE EXPIRES ON:: 09/27/17 ORDER # VISITS AND/OR THROUGH DATE: 09/27/17 PLAN: Contindue progression of trunk stability exercise. Reassess progress again next week and prepare for dicharge with HEP as indicated.
--- NOTE | 2017-09-06 16:20 | RS.OPPTDN ---
Subjective Date of Note: 09/06/17 Visit #: 6 Date of Evaluation: 08/18/17 Payer Source: Medicaid Treatment Diagnosis: Low back pain Current Subjective/complaints:: Patient reports her LBP is some better, but varies with her activity level. States she is working on HEP. Pain Assessment - Pain Description Pain Location: lumbosacral region. Pain Description: Dull, Aching Pain Description: C/o migraine yesterday that was nearly unbearable Current Pain Intensity: 5/10 - Treatment Modality: Ultrasound Parameters/Method Applied: [id number] at 1.5w/cm2 to the bilateral lumbar paraspinals prior to EX. Patient in a forward flexed sitting position. Patient Position: Sitting - Heat/Cryotherapy Treatment: Hot Pack ([id number] to LB in forward flexed sitting position. ) Interventions - Exercise/Activities/Manual Therapy Exercises/Activities: 14mins In sitting, green theraband for scapular retraction for postural strengthening. Assisted stretching of hamstrings. Isometric hip adduction. Reveiwed HEP and general safety with daily activities. Patient given copies of HEP and additional therabands. Total minutes of Exercise: 14mins Manual Therapy: NA HOME EXERCISE PROGRAM: SKTC, HS stretch, LTR. Pelvic tilt. Isometric hip add, isometric hip flexion. Green tband scap retraction. - Charges Total Direct Minutes: 26mins Total Treatment Time: 50mins Procedures billed for this date of service:: HP, US, EX Assessment: Patient has seen minimal progress. She is working on HEP and will continue following discharge. Patient Education: Body/Joint mechanics, Home Exercise Program, Home Safety, Activity Modification, Education of Plan of Care Comments: Patients insurance has not sent approval for treatment. Patient advised we will hold visits at this time pending approval. Patient demonstrates compliance with HEP?: Yes Short Term Goals Goal #1: Pt independent in basic HEP. Goal to be met by: 08/28/17 Progress towards Goal:: Met Goal #2: Tenderness to lumbosacral region decreased to minimal. Goal to be met by: 09/01/17 Progress towards Goal:: Progressing Goal #3: Pt able to lie supine with minimal increase in discomfort. Goal to be met by: 09/01/17 Progress towards Goal:: Met Long-Term Goals Goal #1: Pt knows HEP and to continue ex's to maintain functional level at D/C. Goal to be met by: 09/27/17 Progress towards goal: Met Goal #2: Score on Oswestry LBP scale improved to 42. Goal to be met by: 09/27/17 Progress towards goal: Progressing Goal #3: Pt to tolerate amb. community distances with minimal low back/sacral pain. Goal to be met by: 09/27/17 Progress towards goal: Progressing Goal #4: Pt to sleep 6 hours without interruption from low back/sacral pain. Goal to be met by: 09/27/17 Progress towards goal: Progressing Plan PLAN OF CARE EXPIRES ON:: 09/27/17 ORDER # VISITS AND/OR THROUGH DATE: 09/27/17 PLAN: Hold 1 week to await treatment approval. Patient may resume as indicated.
== END 2017-09-22 ==
PROVIDERS: ATTEND Family Medicine
DX: M48.061 Spinal stenosis, lumbar region without neurogenic claudication (principal)

== ENCOUNTER 2018-01-06 10:05 | Outpatient (CLI) ==
[2018-01-06 10:38] VITALS: BP 127/78; TEMP 98
[2018-01-06] MEDS: VENOFER 200 MG in SODIUM CHLORIDE 100 ML IV ONE (11:00)
== END 2018-01-06 10:06 | disposition home or self-care (01) ==
LOC: OPMED 10:05
PROVIDERS: ATTEND Internal Medicine
DX: D50.9 Iron deficiency anemia, unspecified (principal); K90.9 Intestinal malabsorption, unspecified
CPT/HCPCS: 96365

== ENCOUNTER 2018-01-13 10:10 | Outpatient (CLI) ==
[2018-01-13 10:35] VITALS: BP 107/67; TEMP 97.5
[2018-01-13] MEDS ORDERED: VENOFER 200 MG in SODIUM CHLORIDE 100 ML IV ONE (10:50)
== END 2018-01-13 10:11 | disposition home or self-care (01) ==
LOC: OPMED 10:10
PROVIDERS: ATTEND Internal Medicine
DX: D50.9 Iron deficiency anemia, unspecified (principal); K90.9 Intestinal malabsorption, unspecified
CPT/HCPCS: 96365

== ENCOUNTER 2018-01-20 10:08 | Outpatient (CLI) ==
[2018-01-20] MEDS ORDERED: VENOFER 200 MG in SODIUM CHLORIDE 100 ML IV ONE (11:00)
[2018-01-20 11:01] VITALS: BP 130/76; TEMP 98.2
== END 2018-01-20 10:09 | disposition home or self-care (01) ==
LOC: OPMED 10:08
PROVIDERS: ATTEND Internal Medicine
DX: D50.9 Iron deficiency anemia, unspecified (principal); K90.9 Intestinal malabsorption, unspecified
CPT/HCPCS: 96365

== ENCOUNTER 2018-01-27 10:15 | Outpatient (CLI) ==
[2018-01-27 10:36] VITALS: BP 148/92; TEMP 98.2
[2018-01-27] MEDS ORDERED: VENOFER 200 MG in SODIUM CHLORIDE 100 ML IV ONE (10:37)
== END 2018-01-27 10:16 | disposition home or self-care (01) ==
LOC: OPMED 10:15
PROVIDERS: ATTEND Internal Medicine
DX: D50.9 Iron deficiency anemia, unspecified (principal); K90.9 Intestinal malabsorption, unspecified
CPT/HCPCS: 96365

== ENCOUNTER 2018-01-30 06:44 | Day surgery (SDC) ==
[2018-01-30] MEDS ORDERED: LIDOCAINE 1% 20 ML MDV ID ONE (07:10)
[2018-01-30] MEDS: AK-DILATE 10% OPTH SOL OP PRN ×3 (07:10→07:20)
[2018-01-30] MEDS: TETRACAINE 0.5% UNIT-DOSE OP PRN ×4 (07:10→07:56)
[2018-01-30] MEDS: CYCLOGYL 2% OPTH OP PRN ×3 (07:10→07:20)
[2018-01-30] MEDS: OCUFEN 0.03% OPTH SOL OP PRN ×3 (07:10→07:40)
[2018-01-30] MEDS ORDERED: DIAMOX PO STA ×3 (07:14→09:59)
[2018-01-30] MEDS ORDERED: LIDOCAINE 1% 20 ML MDV ID STA (07:29)
[2018-01-30] MEDS ORDERED: XYLOCAINE MPF 2% INJ STA (07:55)
[2018-01-30] MEDS ORDERED: BSS WITH EPINEPHRINE OP ONE (07:58)
[2018-01-30] MEDS ORDERED: LIDOCAINE 1%-EPI 1:100,000 20 ML MDV INJ STA (07:59)
[2018-01-30] MEDS ORDERED: VERSED ONE (08:00)
[2018-01-30] MEDS ORDERED: SUBLIMAZE ONE (08:00)
[2018-01-30] MEDS ORDERED: NEO-POLYCIN OPTH OINT OP STA (09:59)
--- NOTE | 2018-01-30 13:05 | OP ---
PREOPERATIVE DIAGNOSIS: ADVANCED NUCLEAR SCLEROTIC CATARACT RIGHT EYE AND ALSO CYST RIGHT LATERAL CANTHUS. POSTOPERATIVE DIAGNOSIS: SAME. OPERATION: 1. CATARACT EXTRACTION BY PHACOEMULSIFICATION WITH PLACEMENT OF POSTERIOR CHAMBER LENS, RIGHT EYE. PHACO TIME 9.7 SECONDS AT 2.0% POWER. LENS MODEL TECNIS [id number]. DIOPTER 22.5D. 1 CM WOUND REPAIR, 5.0 VICRYL AND 6-0 PLAN. 2. CYST RIGHT LATERAL CANTHUS WITH CYST SENT TO PATHOLOGY. TECHNIQUE: CLEAR CORNEA. ANESTHESIA: 1. TOPICAL ANESTHESIA W/ANESTHESIA MONITORING. 2. LOCAL ANESTHESIA OPERATIVE REPORT: Topical anesthesia consisting of Tetracaine was applied to the cornea and Xylocaine Methyl Paraben free of MFP was injected intracamerally into the anterior chamber. The patient was then brought into the operating room , prepped and draped in the usual ophthalmic manner. A lid speculum was placed and the operating microscope was used. A paracentesis was made at the 3 o' clock position. A clear corneal incision was made just out to the limbus. The anterior chamber was entered just inside the clear cornea. Viscoelastic was injected into the anterior chamber. A capsulotomy was performed with a bent # 27 gauge needle. Phacoemulsification was then performed in the posterior chamber. After completion of the phacoemulsification, residual cortical material was aspirated with the irrigation-aspiration system. The posterior capsule was polished. Viscoelastic was injected into the anterior and posterior chambers to inflate the capsular bag. Lens were placed via an Unfolder system and stabilized in the bag. Viscoelastic was removed from the anterior chamber. The wound was checked for any leakage. The four sponges were removed from the fornix. Topical antibiotic steroid and nonsteroidal drops were also applied to the cornea. A Arita shield was applied. The patient left the operating room in good condition without any complications. Following the cataract extraction, attention was turned to excision of the cyst on the right lateral canthus. She had local anesthesia consisting of 2% Xylocaine with Epinephrine injected into the right lateral canthal area. The skin was incised with blade and the cyst was excised with scissors. The cyst burst before the cyst was removed therefore the remaining was excised with scissors and cautery was applied to the base of excision. A defect of 1 cm was created. The other deep layer was closed with 5-0 Vicryl and the skin was closed with 6-0 Plain Gut. Maxitrol type ointment was applied prior to incision. The patient left the operating room in good condition. INTRAOPERATIVE MEDICATIONS: Xylocaine Methyl Paraben Free MPF MTDD
[2018-01-30 14:16] VITALS: BP 118/76; TEMP 97.6
== END 2018-01-30 09:00 | disposition home or self-care (01) ==
LOC: SURG 06:44
PROVIDERS: ATTEND Ophthalmology
DX: H25.11 Age-related nuclear cataract, right eye (principal); D23.11 Other benign neoplasm of skin of right eyelid, including canthus; H11.441 Conjunctival cysts, right eye

== ENCOUNTER 2018-02-03 10:21 | Outpatient (CLI) ==
[2018-02-03] MEDS ORDERED: VENOFER 200 MG in SODIUM CHLORIDE 100 ML IV ONE (10:37)
[2018-02-03 10:44] VITALS: BP 133/75; TEMP 98.4
== END 2018-02-03 10:22 | disposition home or self-care (01) ==
LOC: OPMED 10:21
PROVIDERS: ATTEND Internal Medicine
DX: D50.9 Iron deficiency anemia, unspecified (principal); K90.9 Intestinal malabsorption, unspecified
CPT/HCPCS: 96365

== ENCOUNTER 2018-02-10 10:15 | Outpatient (CLI) ==
[2018-02-10 10:30] VITALS: BP 123/64; TEMP 98.2
[2018-02-10] MEDS ORDERED: VENOFER 200 MG in SODIUM CHLORIDE 100 ML IV ONE (10:31)
== END 2018-02-10 10:16 | disposition home or self-care (01) ==
LOC: OPMED 10:15
PROVIDERS: ATTEND Internal Medicine
DX: D50.9 Iron deficiency anemia, unspecified (principal); K90.9 Intestinal malabsorption, unspecified
CPT/HCPCS: 96365

== ENCOUNTER 2018-02-17 10:20 | Outpatient (CLI) ==
[2018-02-17] MEDS ORDERED: VENOFER 200 MG in SODIUM CHLORIDE 100 ML IV ONE (10:29)
[2018-02-17 10:33] VITALS: BP 127/76; TEMP 98.4
== END 2018-02-17 10:21 | disposition home or self-care (01) ==
LOC: OPMED 10:20
PROVIDERS: ATTEND Internal Medicine
DX: D50.9 Iron deficiency anemia, unspecified (principal); K90.9 Intestinal malabsorption, unspecified
CPT/HCPCS: 96365

== ENCOUNTER 2018-02-24 10:04 | Outpatient (CLI) ==
[2018-02-24 10:33] VITALS: BP 101/65; TEMP 98.2
[2018-02-24] MEDS ORDERED: VENOFER 200 MG in SODIUM CHLORIDE 100 ML IV ONE (10:34)
== END 2018-02-24 10:05 | disposition home or self-care (01) ==
LOC: OPMED 10:04
PROVIDERS: ATTEND Internal Medicine
DX: D50.9 Iron deficiency anemia, unspecified (principal); K90.9 Intestinal malabsorption, unspecified
CPT/HCPCS: 96365

== ENCOUNTER 2018-03-06 07:46 | Day surgery (SDC) ==
[2018-03-06] MEDS: TETRACAINE 0.5% UNIT-DOSE OP PRN ×4 (08:06→08:37)
[2018-03-06] MEDS: OCUFEN 0.03% OPTH SOL OP PRN ×4 (08:07→08:37)
[2018-03-06] MEDS: CYCLOGYL 2% OPTH OP PRN ×3 (08:07→08:17)
[2018-03-06] MEDS: AK-DILATE 10% OPTH SOL OP PRN ×3 (08:07→08:17)
[2018-03-06 08:10] VITALS: TEMP 98.2
[2018-03-06] MEDS ORDERED: DIAMOX PO STA ×2 (08:11→08:24)
[2018-03-06] MEDS ORDERED: LIDOCAINE HCL 1% SDV INJ STA (08:11)
[2018-03-06] MEDS ORDERED: LIDOCAINE 1% 20 ML MDV ID STA (08:24)
[2018-03-06] MEDS ORDERED: VERSED ONE (09:55)
[2018-03-06] MEDS ORDERED: BETADINE OPTH PREP OP ONE (09:56)
[2018-03-06] MEDS ORDERED: GENTAK OPTH OINT OP STA (09:57)
[2018-03-06] MEDS ORDERED: ADRENALIN 1:1000 SDV IR STA (09:57)
[2018-03-06 15:12] VITALS: BP 128/84
--- NOTE | 2018-03-07 13:40 | OP ---
PREOPERATIVE DIAGNOSIS: ADVANCED AGE NUCLEAR SCLEROTIC CATARACT LEFT EYE, CYST LEFT LATERAL CANTHUS POSTOPERATIVE DIAGNOSIS: SAME. OPERATION PHACOEMULSIFICATION ASPIRATION OF CATARACT LEFT EYE, CYST LATERAL CANTHUS EXCISED. PLACEMENT OF POSTERIOR CHAMBER LENS. PHACO TIME 18.3 SECONDS AT 9% POWER. LENS MODEL WANDA [id number]. DIOPTER +22.5D. TECHNIQUE: CLEAR CORNEA. ANESTHESIA: TOPICAL ANESTHESIA W/ANESTHESIA MONITORING. OPERATIVE REPORT: Topical anesthesia consisting of Tetracaine was applied to the cornea and Xylocaine Methyl Paraben free of MFP was injected intracamerally into the anterior chamber. The patient was then brought into the operating room , prepped and draped in the usual ophthalmic manner. A lid speculum was placed and the operating microscope was used. A paracentesis was made at the 3 o' clock position. A clear corneal incision was made just out to the limbus. The anterior chamber was entered just inside the clear cornea. Viscoelastic was injected into the anterior chamber. A capsulotomy was performed with a bent # 27 gauge needle. Phacoemulsification was then performed in the posterior chamber. After completion of the phacoemulsification, residual cortical material was aspirated with the irrigation-aspiration system. The posterior capsule was polished. Viscoelastic was injected into the anterior and posterior chambers to inflate the capsular bag. Lens were placed via an Unfolder system and stabilized in the bag. Viscoelastic was removed from the anterior chamber. The wound was checked for any leakage. The four sponges were removed from the fornix. Topical antibiotic steroid and nonsteroidal drops were also applied to the cornea. A Arita shield was applied. The patient left the operating room in good condition without any complications. ADDENDUM: Cyst lateral canthus excised. INTRAOPERATIVE MEDICATIONS: Xylocaine Methyl Paraben Free MPF MTDD
== END 2018-03-06 10:55 | disposition home or self-care (01) ==
LOC: SURG 07:46
PROVIDERS: ATTEND Ophthalmology
DX: H25.12 Age-related nuclear cataract, left eye (principal); H11.442 Conjunctival cysts, left eye

== ENCOUNTER 2018-07-19 16:08 | Outpatient (CLI) | END 2018-07-19 16:09 | disposition home or self-care (01) | LOC: LAB 16:08 | PROVIDERS: ATTEND Family Medicine | DX: I10 Essential (primary) hypertension (principal); K90.9 Intestinal malabsorption, unspecified; C73 Malignant neoplasm of thyroid gland | CPT/HCPCS: 36415; 80053; 82728; 83540; 84439; 84443; 85025 ==

== ENCOUNTER 2018-08-01 05:13 | Emergency (ER) ==
[2018-08-01 05:33] VITALS: BP 119/76; TEMP 97.7; BMI 34.5
[2018-08-01] MEDS ORDERED: DILAUDID 2 MG/ML SDV IM STA (06:07)
[2018-08-01] MEDS ORDERED: NORFLEX IM STA (06:07)
--- NOTE | 2018-08-01 06:10 | ED.PDOC ---
General ED Provider: Dr. SANJIV MACDONALD-ER Chief Complaint: Back Pain Stated Complaint: i twisted my back Time Seen by Physician: 06:08 Mode of Arrival: Wheelchair Information Source: Patient, Assisted Living Primary Care Provider: SANJIV MACDONALD Nursing and Triage Documentation Reviewed and Agree: Yes Does patient meet sepsis criteria?: No System Inflammatory Response Syndrome: Not Applicable Sepsis Protocol: For patient's 13 years and over: Temp is 96.8 and below OR 101 and greater Pulse >90 BPM Resp >20/minute Acutely Altered Mental Status Are patient's symptoms suggestive of a new infection, such as: -Pneumonia -Skin, Soft Tissue -Endocarditis -UTI -Bone, Joint Infection -Implantable Device -Acute Abdominal Infection -Wound Infection -Meningitis -Blood Stream Catheter Infection -Unknown Musculoskeletal Complaint Exam - Back Pain Complaint/Exam Mechanism of Injury: Reports: No known trauma Onset/Duration: 24 hrs Symptoms Are: Still present Timing: Constant Episodes Lasting: Hours Initial Severity: Mild Current Severity: Moderate Location: Reports: Discrete Character: Reports: Dull, Aching, Spasmodic, Stiffness Aggravating: Reports: Movements, Lifting, Bending, Walking Alleviating: Reports: Position Associated Signs and Symptoms: Denies: Swelling, Redness, Bruising, Fever, Weakness, Numbness, Tingling, Abdominal pain, Flank pain, Bladder incontinence, Bowel incontinence, Weight loss, Pain with weight bearing Focal Tenderness: Yes Paraspinal Muscle Tenderness: Yes Paraspinal Muscle Spasm: No Scoliosis: No Lordosis: No Kyphosis: No SLR Test: Right Negative, Left Negative Hip Motion Testing Pain: Right Negative, Left Negative Focal Weakness: Present: None Focal Sensory Loss: Present: None Gait: Present: Abnormal Differential Diagnoses: Herniated Disk, Strain, Sprain Review of Systems - Review Of Systems Constitutional: Reports: No symptoms Eyes: Reports: No symptoms Ears, Nose, Mouth, Throat: Reports: No symptoms Respiratory: Reports: No symptoms Cardiac: Reports: No symptoms GI: Reports: No symptoms : Reports: No symptoms Musculoskeletal: Reports: Back pain, Muscle pain, Muscle stiffness Skin: Reports: No symptoms Neurological: Reports: No symptoms Endocrine: Reports: No symptoms Hematologic/Lymphatic: Reports: No symptoms All Other Systems: Reviewed and Negative Past Medical History - Past Medical History Previously Healthy: No Endocrine: Reports: DM 2 Cardiovascular: Reports: Hypertension, Other (RAPID HEART RATE) Respiratory: Reports: Asthma Hematological: Reports: Anemia Gastrointestinal: Reports: None Genitourinary: Reports: None Neuro/Psych: Reports: Anxiety, Depression, Other (RAPID HEART RATE/NEUROPATHY) Musculoskeletal: Reports: None, Back Pain Cancer: Reports: Other Last Menstrual Period: menopausal at 50 y/o - Surgical History General Surgical History: Reports: Tubal ligation, Orthopedic (carpaltunnel), Hernia Repair (HERNIA REPAIR (UMBILICAL)), Other (dental) - Family History Family History: Reports: Unknown - Social History Smoking Status: Never smoker Hx Substance Use: No Alcohol Screening: None - Immunizations Tetanus Shot up to Date: Yes Physical Exam - Physical Exam Appearance: Well-appearing Pain Distress: Moderate Eyes: GARRETT, EOMI, Conjunctiva clear ENT: Ears normal, Nose normal, Oropharynx normal Neck: Supple Respiratory: Airway patent, Breath sounds clear, Breath sounds equal, Respirations nonlabored Cardiovascular: RRR, Pulses normal, No rub, No murmur GI/: Soft Musculoskeletal: Limited ROM (paraspinal muscle tenderness) Skin: Warm Neurological: Sensation intact Psychiatric: Affect appropriate, Mood appropriate Re-Evaluation - Re-Evaluation Time of Re-Evaluation: 06:30 Status: Improved Vital Signs Stable: Yes Pain Level: 3 Appearance: NAD Lungs: Clear Skin: Warm and Dry Neuro: Alert and Oriented X3 CV: RRR Critical Care Note - Critical Care Note Total Time (mins): 0 Course - Course Orders, Labs, Meds: Orders Category Date Time Status Hydromorphone HCl [Dilaudid 2 mg/ml Sdv] MEDS 08/01/18 06:07 Stat 2 mg IM ONCE STA Orphenadrine Citrate [Norflex] MEDS 08/01/18 06:07 Stat 60 mg IM ONCE STA Medications Generic Name Dose Route Start Last Admin Trade Name Freq PRN Reason Stop Dose Admin Hydromorphone HCl 2 mg 08/01/18 06:07 Dilaudid 2 Mg/Ml Sdv IM 08/01/18 06:08 ONCE STA Orphenadrine Citrate 60 mg 08/01/18 06:07 Norflex IM 08/01/18 06:08 ONCE STA Vital Signs: Temp Pulse Resp BP Pulse Ox 08/01/18 05:21 97.7 F 86 22 119/76 96 Departure - Departure Time of Disposition: 06:11 Disposition: HOME SELF-CARE Discharge Problem: Back pain Qualifiers: Back pain location: low back pain Chronicity: acute Back pain laterality: right Sciatica presence: without sciatica Qualified Code(s): M54.5 - Low back pain Instructions: Acute Low Back Pain (ED) Condition: Fair Pt referred to PMD for follow-up: Yes IPMP verified?: No Additional Instructions: see me in the office this week Allergies/Adverse Reactions: Allergies codeine Adverse Reaction (Verified 08/01/18 05:33) morphine Adverse Reaction (Verified 08/01/18 05:33) promethazine HCl [From Phenergan] Adverse Reaction (Verified 08/01/18 05:33) Home Medications: Ambulatory Orders Albuterol Sulfate [Proair Hfa] 2 puff IH QID PRN 07/12/13 Diltiazem HCl [Diltiazem ER] 60 mg PO BID 07/12/13 Diphenhydramine HCl [Benadryl] 25 mg PO Q6H PRN 07/12/13 Gabapentin 600 mg PO TID 07/12/13 Hydrocodone/Acetaminophen [Hydrocodon-Acetaminophn 10-325] 1 tab PO Q6HR PRN Lorazepam [Ativan] 1 mg PO BID PRN 07/12/13 Metformin HCl [Glucophage] 500 mg PO BIDWM 07/12/13 Prochlorperazine Maleate [Compazine] 1 tab PO BID PRN 07/12/13 Sennosides/Docusate Sodium [Senna S Tablet] 2 tab PO BID 07/12/13 Cyclobenzaprine HCl [Flexeril] 10 mg PO TID PRN 01/03/17 Fluticasone Propionate [Flonase] 2 spray NS DIRECTED PRN 01/03/17 Furosemide 40 mg PO DAILY 01/03/17 Levothyroxine Sodium [Synthroid] 150 mcg PO DAILY 01/03/17 Losartan/Hydrochlorothiazide [Hyzaar 100-25 Tablet] 1 each PO DAILY 01/03/17 Nizatidine 150 mg PO BID 01/03/17 Ondansetron HCl [Zofran] 4 mg PO Q8H PRN 01/03/17 Tramadol HCl 50 mg PO BID 01/03/17 Insulin Glargine,Hum.rec.anlog [Lantus Solostar] 35 units SQ DAILY 01/26/18 Insulin Glargine,Hum.rec.anlog [Lantus Solostar] 35 units SQ INSULIN EVENING 03/10 Disposition Discussed With: Patient, Family
[2018-08-01] MEDS ORDERED: DILAUDID 1 MG/ML SYRINGE ONE (06:15)
[2018-08-01] MEDS ORDERED: ZOFRAN 4 MG/2 ML ONE (06:35)
== END 2018-08-01 07:05 | disposition home or self-care (01) ==
LOC: ED 05:13
DX: M54.5 Low back pain (principal); X50.1XXA Overexertion from prolonged static or awkward postures, initial encounter
CPT/HCPCS: 96372; 99282

== ENCOUNTER 2018-08-02 11:49 | Outpatient (CLI) ==
[2018-08-01 05:33] VITALS: BMI 34.5
--- NOTE | 2018-08-02 15:24 | DI ---
Exam: Three views of the thoracic spine. Comparison: Chest x-ray performed 01/03/2017. Reason for exam: Mid back pain. FINDINGS: No vertebral body height loss is seen. There is a similar appearing thoracic kyphotic cur ve with moderate degenerative disease and osteophyte formation. Impression: 1. No acute fracture or listhesis in the thoracic spine. 2. Moderate degenerative disease
== END 2018-08-02 11:50 | disposition home or self-care (01) ==
LOC: RAD 11:49
PROVIDERS: ATTEND Family Medicine
DX: M54.6 Pain in thoracic spine (principal)

== ENCOUNTER 2018-08-04 15:10 | Outpatient (CLI) | END 2018-08-04 15:11 | disposition home or self-care (01) | LOC: LAB 15:10 | PROVIDERS: ATTEND Family Medicine | DX: E11.9 Type 2 diabetes mellitus without complications (principal); Z79.4 Long term (current) use of insulin | CPT/HCPCS: 36415; 83036 ==

== ENCOUNTER 2018-08-31 14:16 | Outpatient (CLI) ==
[2018-08-31 14:33] VITALS: BMI 35.4
== END 2018-08-31 14:17 | disposition home or self-care (01) ==
LOC: AMBL 14:16
PROVIDERS: ATTEND Emergency Medicine
DX: R07.9 Chest pain, unspecified (principal); R00.0 Tachycardia, unspecified

== ENCOUNTER 2018-08-31 14:25 | Emergency (ER) ==
[2018-08-31 14:33] VITALS: BP 122/77; TEMP 98.6; BMI 35.4
--- NOTE | 2018-08-31 14:49 | ED.PDOC ---
General ED Provider: Dr. SANJIV BEE Chief Complaint: Chest Pain Stated Complaint: Mid substernal chest pain after drinking orange juice Time Seen by Physician: 14:35 Mode of Arrival: Walk-In Information Source: Patient Exam Limitations: No limitations Primary Care Provider: SANJIV MACDONALD Nursing and Triage Documentation Reviewed and Agree: Yes Does patient meet sepsis criteria?: No System Inflammatory Response Syndrome: Not Applicable Sepsis Protocol: For patient's 13 years and over: Temp is 96.8 and below OR 101 and greater Pulse >90 BPM Resp >20/minute Acutely Altered Mental Status Are patient's symptoms suggestive of a new infection, such as: -Pneumonia -Skin, Soft Tissue -Endocarditis -UTI -Bone, Joint Infection -Implantable Device -Acute Abdominal Infection -Wound Infection -Meningitis -Blood Stream Catheter Infection -Unknown Cardiovascular Complaint Exam - Chest Pain Complaint/Exam Onset: Sudden Duration: 1 hr Symptoms Are: Still present Timing: Intermittent Initial Severity: Moderate Current Severity: Mild Location: Reports: Midsternal Pain Radiates: Reports: Back Character: Reports: Aching, Squeezing Aggravating: Reports: None Alleviating: Reports: OTC meds (Relieved after GI cocktail administered), Upright position, Spontaneous resolution Associated Signs and Symptoms: Reports: Diaphoresis, Nausea, Vomiting, Palpitations Related History: Reports: Current ARBs, Current Ca Jarquin.Carmina, Other Review of Systems - Review Of Systems Constitutional: Reports: No symptoms Eyes: Reports: No symptoms Ears, Nose, Mouth, Throat: Reports: No symptoms Respiratory: Reports: No symptoms Cardiac: Reports: No symptoms GI: Reports: No symptoms : Reports: No symptoms Musculoskeletal: Reports: No symptoms Skin: Reports: No symptoms Neurological: Reports: No symptoms Endocrine: Reports: No symptoms Hematologic/Lymphatic: Reports: No symptoms All Other Systems: Reviewed and Negative Past Medical History - Past Medical History Previously Healthy: No (Multiple medical problems) Endocrine: Reports: DM 2 Cardiovascular: Reports: Hypertension, Other (RAPID HEART RATE) Respiratory: Reports: Asthma Hematological: Reports: Anemia Gastrointestinal: Reports: None Genitourinary: Reports: None Neuro/Psych: Reports: Anxiety, Depression, Other (RAPID HEART RATE/NEUROPATHY) Musculoskeletal: Reports: None, Back Pain Cancer: Reports: Other Last Menstrual Period: N/A - Surgical History General Surgical History: Reports: Tubal ligation, Orthopedic (carpaltunnel), Hernia Repair (HERNIA REPAIR (UMBILICAL)), Other (dental) - Family History Family History: Reports: Unknown - Social History Smoking Status: Never smoker Hx Substance Use: No Alcohol Screening: None - Immunizations Tetanus Shot up to Date: Yes Physical Exam - Physical Exam Appearance: Well-appearing, No pain distress, Well-nourished, Obese Ill-appearing: None Pain Distress: None (Symptoms resolved after GI cocktail) Eyes: GARRETT, EOMI, Conjunctiva clear ENT: Ears normal, Nose normal, Oropharynx normal Neck: Supple Respiratory: Airway patent, Breath sounds clear, Breath sounds equal, Respirations nonlabored Cardiovascular: RRR, Pulses normal, No rub, No murmur GI/: Soft, No masses, Bowel sounds normal, No Organomegaly, Tender (minimal mid epigastric) Musculoskeletal: Normal strength, ROM intact, No edema, No calf tenderness Skin: Warm, Dry, Normal color Neurological: Sensation intact, Motor intact, Reflexes intact, Cranial nerves intact, Alert, Oriented Psychiatric: Affect appropriate, Mood appropriate Interpretation - Radiology Interpretation Radiology Interpretation By: Radiologist Radiology Results: Negative Exam Interpreted: CXR Re-Evaluation - Re-Evaluation Time of Re-Evaluation: 16:00 Status: Improved Vital Signs Stable: Yes Appearance: NAD Lungs: Clear Skin: Warm and Dry Neuro: Alert and Oriented X3 CV: RRR Critical Care Note - Critical Care Note Total Time (mins): 60 Course - Course Hematology/Chemistry: 08/31/18 15:00 08/31/18 15:00 Orders, Labs, Meds: Lab Review 08/31/18 08/31/18 08/31/18 15:00 15:00 15:00 WBC 7.70 RBC 4.14 L Hgb 13.0 Hct 38.3 MCV 92.5 MCH 31.4 H MCHC 33.9 RDW Coeff of Roberto 13.8 Plt Count 447 H Immature Gran % (Auto) 3.5 Neut % (Auto) 56.2 Lymph % (Auto) 31.9 [place] % (Auto) 5.1 Eos % (Auto) 2.7 Baso % (Auto) 0.6 Immature Gran # (Auto) 0.3 Neut # (Auto) 4.3 Lymph # (Auto) 2.5 [place] # (Auto) 0.4 Eos # (Auto) 0.2 Baso # (Auto) 0.1 Sodium 135.5 L Potassium 3.32 L Chloride 93.0 L Carbon Dioxide 37.9 H Anion Gap 7.92 BUN 31.1 H Creatinine 1.12 Estimated GFR (MDRD) 49.00 BUN/Creatinine Ratio 27.76 Glucose 132.9 H Calcium 11.65 H Total Bilirubin 0.43 AST 34.4 ALT 27.6 Alkaline Phosphatase 65.2 Troponin I < 0.012 Total Protein 7.59 Albumin 4.23 Globulin 3.36 Albumin/Globulin Ratio 1.25 Lipase 82.0 Orders Category Date Time Status EKG-(ED ONLY) Stat CARDIO 08/31/18 14:53 Completed CBC W/ AUTO DIFF Stat LAB 08/31/18 15:00 Completed CMP [COMPREHENSIVE METABOLIC PANEL] Stat LAB 08/31/18 15:00 Completed LIPASE Stat LAB 08/31/18 15:00 Completed TROPONIN I Stat LAB 08/31/18 15:00 Completed Mag-Al Plus//Lidocaine [Gi Cocktail] MEDS 08/31/18 14:54 Discontinued 30 ml PO ONCE STA Potassium Chloride [K-Dur] MEDS 08/31/18 15:58 Discontinued 20 meq PO ONCE STA CHEST, 1V AP ONLY Stat RADS 08/31/18 14:52 Completed Medications Discontinued Medications Generic Name Dose Route Start Last Admin Trade Name Freq PRN Reason Stop Dose Admin Al Hydroxide/Mg Hydroxide 30 ml 08/31/18 14:54 08/31/18 15:02 Gi Cocktail PO 08/31/18 14:55 30 ml ONCE STA Administration Potassium Chloride 20 meq 08/31/18 15:58 08/31/18 16:08 K-Dur PO 08/31/18 15:59 20 meq ONCE STA Administration Vital Signs: Temp Pulse Resp BP Pulse Ox 08/31/18 14:26 98.6 F 109 H 18 122/77 94 L SUNG Risk Score SUNG Risk Score: Risk Score Odds of by 30D 0 0.1 (0.1-0.2) 1 0.3 (0.2-0.3) 2 0.4 (0.3-0.5) 3 0.7 (0.6-0.9) 4 1.2 (1.0-1.5) 5 2.2 (1.9-2.6) 6 3.0 (2.5-3.6) 7 4.8 (3.8-6.1) Departure - Departure Time of Disposition: 15:58 Disposition: HOME SELF-CARE Discharge Problem: Atypical chest pain, GERD (gastroesophageal reflux disease) Instructions: Hypokalemia (ED), Gastroesophageal Reflux Disease (ED), Chest Pain (ED) Condition: Good Pt referred to PMD for follow-up: Yes IPMP verified?: No Additional Instructions: Stay on bland diet Avoid acidic beverages Take meds as directed Take meds as directed Prescriptions: Pantoprazole Sodium [Protonix] 20 mg PO DAILY #10 tablet. Potassium Chloride 10 meq PO DAILY #10 tablet.er Allergies/Adverse Reactions: Allergies codeine Adverse Reaction (Verified 08/01/18 05:33) morphine Adverse Reaction (Verified 08/01/18 05:33) promethazine HCl [From Phenergan] Adverse Reaction (Verified 08/01/18 05:33) Home Medications: Ambulatory Orders Albuterol Sulfate [Proair Hfa] 2 puff IH QID PRN 07/12/13 Diltiazem HCl [Diltiazem ER] 60 mg PO BID 07/12/13 Diphenhydramine HCl [Benadryl] 25 mg PO Q6H PRN 07/12/13 Gabapentin 600 mg PO TID 07/12/13 Hydrocodone/Acetaminophen [Hydrocodon-Acetaminophn 10-325] 1 tab PO Q6HR PRN Lorazepam [Ativan] 1 mg PO BID PRN 07/12/13 Metformin HCl [Glucophage] 500 mg PO BIDWM 07/12/13 Prochlorperazine Maleate [Compazine] 1 tab PO BID PRN 07/12/13 Sennosides/Docusate Sodium [Senna S Tablet] 2 tab PO BID 07/12/13 Cyclobenzaprine HCl [Flexeril] 10 mg PO TID PRN 01/03/17 Fluticasone Propionate [Flonase] 2 spray NS DIRECTED PRN 01/03/17 Furosemide 40 mg PO DAILY 01/03/17 Levothyroxine Sodium [Synthroid] 150 mcg PO DAILY 01/03/17 Losartan/Hydrochlorothiazide [Hyzaar 100-25 Tablet] 1 each PO DAILY 01/03/17 Nizatidine 150 mg PO BID 01/03/17 Ondansetron HCl [Zofran] 4 mg PO Q8H PRN 01/03/17 Tramadol HCl 50 mg PO BID 01/03/17 Insulin Glargine,Hum.rec.anlog [Lantus Solostar] 35 units SQ DAILY 01/26/18 Insulin Glargine,Hum.rec.anlog [Lantus Solostar] 35 units SQ INSULIN EVENING 03/10 Pantoprazole Sodium [Protonix] 20 mg PO DAILY #10 tablet. 08/31/18 Potassium Chloride 10 meq PO DAILY #10 tablet.er 08/31/18 Disposition Discussed With: Patient, Family
[2018-08-31] MEDS ORDERED: GI COCKTAIL PO STA (14:54)
--- NOTE | 2018-08-31 15:28 | DI ---
EXAM: Chest one view HISTORY: Midepigastric pain COMPARISON: 01/03/2017 TECHNIQUE: Single view of the chest was performed FINDINGS: No airspace consolidation. Granulomas calcification. There is no pleural effusion or pne umothorax. The heart is normal in size. The mediastinal contour is normal. There are no acute abno rmalities of the bones. IMPRESSION: No acute cardiopulmonary process.
[2018-08-31] MEDS ORDERED: K-DUR PO STA (15:58)
== END 2018-08-31 16:17 | disposition home or self-care (01) ==
LOC: ED 14:25
DX: R07.89 Other chest pain (principal); K21.9 Gastro-esophageal reflux disease without esophagitis; E87.6 Hypokalemia; E11.9 Type 2 diabetes mellitus without complications; I10 Essential (primary) hypertension; Z79.899 Other long term (current) drug therapy
CPT/HCPCS: 36415; 80053; 83690; 84484; 85025; 93005; 93010; 99284

== ENCOUNTER 2018-11-11 03:44 | Emergency (ER) ==
[2018-11-11 04:13] VITALS: BP 103/67; TEMP 97.7; BMI 33.6
--- NOTE | 2018-11-11 05:45 | ED.PDOC ---
General ED Provider: Dr. SANJIV LOMELI MD Chief Complaint: Back Pain Stated Complaint: back pain Time Seen by Physician: 04:00 Mode of Arrival: Wheelchair Information Source: Patient Exam Limitations: No limitations Primary Care Provider: SANJIV MACDONALD Nursing and Triage Documentation Reviewed and Agree: Yes Does patient meet sepsis criteria?: No System Inflammatory Response Syndrome: Not Applicable Sepsis Protocol: For patient's 13 years and over: Temp is 96.8 and below OR 101 and greater Pulse >90 BPM Resp >20/minute Acutely Altered Mental Status Are patient's symptoms suggestive of a new infection, such as: -Pneumonia -Skin, Soft Tissue -Endocarditis -UTI -Bone, Joint Infection -Implantable Device -Acute Abdominal Infection -Wound Infection -Meningitis -Blood Stream Catheter Infection -Unknown Review of Systems - Review Of Systems Constitutional: Reports: No symptoms Eyes: Reports: No symptoms Ears, Nose, Mouth, Throat: Reports: No symptoms Respiratory: Reports: No symptoms Cardiac: Reports: No symptoms GI: Reports: Constipated : Reports: No symptoms Musculoskeletal: Reports: No symptoms Skin: Reports: No symptoms Neurological: Reports: No symptoms Endocrine: Reports: No symptoms Hematologic/Lymphatic: Reports: No symptoms All Other Systems: Reviewed and Negative Past Medical History - Past Medical History Previously Healthy: No (Multiple medical problems) Endocrine: Reports: DM 2 Cardiovascular: Reports: Hypertension, Other (RAPID HEART RATE) Respiratory: Reports: Asthma Hematological: Reports: Anemia Gastrointestinal: Reports: None Genitourinary: Reports: None Neuro/Psych: Reports: Anxiety, Depression, Other (RAPID HEART RATE/NEUROPATHY) Musculoskeletal: Reports: None, Back Pain Cancer: Reports: Other Last Menstrual Period: 13 YEARS AGO - Surgical History General Surgical History: Reports: Tubal ligation, Orthopedic (carpaltunnel), Hernia Repair (HERNIA REPAIR (UMBILICAL)), Other (dental) - Family History Family History: Reports: Unknown - Social History Smoking Status: Never smoker Hx Substance Use: No Alcohol Screening: None - Immunizations Tetanus Shot up to Date: Yes Physical Exam - Physical Exam Appearance: Obese Ill-appearing: Mild Pain Distress: Mild Eyes: GARRETT, EOMI, Conjunctiva clear ENT: Ears normal Respiratory: Airway patent, Breath sounds clear, Breath sounds equal, Respirations nonlabored Cardiovascular: RRR, Pulses normal, No rub, No murmur GI/: Soft, Nontender, No masses, Bowel sounds normal, No Organomegaly Musculoskeletal: Normal strength, ROM intact, No edema, No calf tenderness Skin: Warm, Dry, Normal color Neurological: Sensation intact, Motor intact, Reflexes intact, Cranial nerves intact, Alert, Oriented Psychiatric: Affect appropriate, Mood appropriate Critical Care Note - Critical Care Note Total Time (mins): 0 Course - Course Orders, Labs, Meds: Lab Review 11/11/18 04:45 Urine Color Yellow Urine Clarity Slightly Urine pH 6.5 Ur Specific Gratis 1.015 Urine Protein Negative Urine Glucose (UA) Negative Urine Ketones Negative Urine Blood Negative Urine Nitrite Negative Urine Bilirubin Negative Urine Urobilinogen 0.2 Ur Leukocyte Esterase 2+ Urine Microscopic RBC 0-2 Urine Microscopic WBC 10-20 Ur Squamous Epith Cells 2-5 Urine Bacteria 1+ Hyaline Casts 2-5 Orders Category Date Time Status UA [URINALYSIS C & S IF INDICATED] Stat LAB 11/11/18 04:45 Completed URINE CULTURE Stat LAB 11/11/18 04:45 Received Vital Signs: Temp Pulse Resp BP Pulse Ox 11/11/18 03:47 97.7 F 84 20 103/67 97 Departure - Departure Time of Disposition: 06:00 Disposition: HOME SELF-CARE Discharge Problem: Back pain, Constipation Condition: Good Pt referred to PMD for follow-up: Yes IPMP verified?: No Additional Instructions: mag citrate at home Allergies/Adverse Reactions: Allergies codeine Adverse Reaction (Verified 11/11/18 03:54) morphine Adverse Reaction (Verified 11/11/18 03:54) promethazine HCl [From Phenergan] Adverse Reaction (Verified 11/11/18 03:54) Home Medications: Ambulatory Orders Albuterol Sulfate [Proair Hfa] 2 puff IH QID PRN 07/12/13 Diltiazem HCl [Diltiazem ER] 60 mg PO BID 07/12/13 Diphenhydramine HCl [Benadryl] 25 mg PO Q6H PRN 07/12/13 Gabapentin 600 mg PO TID 07/12/13 Hydrocodone/Acetaminophen [Hydrocodon-Acetaminophn 10-325] 1 tab PO Q6HR PRN Lorazepam [Ativan] 1 mg PO BID PRN 07/12/13 Metformin HCl [Glucophage] 500 mg PO BIDWM 07/12/13 Prochlorperazine Maleate [Compazine] 1 tab PO BID PRN 07/12/13 Sennosides/Docusate Sodium [Senna S Tablet] 3 tab PO BID 07/12/13 Cyclobenzaprine HCl [Flexeril] 10 mg PO TID PRN 01/03/17 Fluticasone Propionate [Flonase] 2 spray NS DIRECTED PRN 01/03/17 Furosemide 40 mg PO DAILY 01/03/17 Levothyroxine Sodium [Synthroid] 150 mcg PO DAILY 01/03/17 Losartan/Hydrochlorothiazide [Hyzaar 100-25 Tablet] 1 each PO DAILY 01/03/17 Nizatidine 150 mg PO BID 01/03/17 Tramadol HCl 50 mg PO BID 01/03/17 Insulin Glargine,Hum.rec.anlog [Lantus Solostar] 35 units SQ DAILY 01/26/18 Insulin Glargine,Hum.rec.anlog [Lantus Solostar] 35 units SQ INSULIN EVENING 03/10 Pantoprazole Sodium [Protonix] 20 mg PO DAILY #10 tablet. 08/31/18 Potassium Chloride 10 meq PO DAILY #10 tablet.er 08/31/18 Disposition Discussed With: Patient
[2018-11-11] MEDS ORDERED: TORADOL IM STA (05:46)
--- NOTE | 2018-11-11 05:50 | DI ---
EXAM: AP single view of the abdomen. HISTORY: Back pain. FINDINGS: There is a 7 mm calcification projecting over the anatomic region of the left kidney. Ther e is a 2 mm calcification projecting over the anatomic course of the right ureter at the level of the L4 vertebral body. There are multiple calcifications in the pelvis consistent with phleboliths. Th ere is bowel gas obscuring the anatomic region of the right kidney. There is a normal bowel gas duncan flaquita. There is fecal stasis in the colon consistent with constipation. There are degenerative change s in the spine. Impression: 2 mm calcification projecting over the anatomic course of the right ureter as described w hich may represent a ureterolith. Consider CT for further evaluation if clinically indicated. Left nephrolithiasis as described. Fecal stasis in the colon consistent with constipation.
== END 2018-11-11 06:17 | disposition home or self-care (01) ==
LOC: ED 03:44
DX: M54.9 Dorsalgia, unspecified (principal); K59.00 Constipation, unspecified
CPT/HCPCS: 81001; 87086; 87186; 96372; 99283

== ENCOUNTER 2018-12-19 12:09 | Outpatient (CLI) ==
--- NOTE | 2018-12-19 13:56 | MRI ---
EXAM: MRI right shoulder without contrast. HISTORY: Chronic right shoulder pain. No right shoulder surgery reported.. TECHNIQUE: Using a local coil on a high field strength magnet multiplanar multisequence magnet reson ance imaging was attempted of the right shoulder without intravenous or intra-articular gadolinium co ntrast. Examination of limited diagnostic quality secondary to motion degradation on multiple imaging sequenc es. FINDINGS: I do not have prior radiographs of the right shoulder available for comparison at the time of this dictation. A Type I/I I acromion. Coracoacromial ligament/arch intact with thickening. Moderately severe right acromioclavicular joint degenerative arthrosis/osteoarthrosis. Fatty infiltration deltoid musculatu re. Trace fluid subacromial/subdeltoid bursa. Muscle bulk of the rotator cuff shows fatty infiltration . Some atrophy subscapularis. Diffuse supr aspinatus tendinosis over the insertion and critical zone. There is an approximate 19 mm AP by 21 mm in length area of partial thickness articular sided tearing supraspinatus involving at least 50% thi ckness of the cuff. Bursal sided fraying. I do not see however no definitive full-thickness tear co mponent. Posterior infraspinatus tendinosis with bursal sided fraying. Posterior inferior intact te res minor tendon fibers. Anterior there is diminutive thickness to the subscapularis cuff fibers whi ch may reflect chronic partial thickness tearing. I do not see a definitive full-thickness subscapul shama tendon tear. Question medial subluxed proximal long head biceps tendon fibers with tendinosis a nd at least partial thickness tearing. The right humeral head is within normal limit in morphology and seated. Early / mild right glenohume ral joint osteoarthrosis. Trace right glenohumeral joint effusion. The superior right glenoid labru m poorly characterized. Degeneration/tear not excluded on this limited/motion degraded non-arthrogra phic examination. Overall bone marrow signal heterogeneity which may reflect intermixed red and yell ow marrow.. IMPRESSION: Moderately severe right acromioclavicular joint degenerative arthrosis/osteoarthrosis. Diffuse supraspinatus tendinosis. 19 x 21 mm area partial thickness articular sided tearing involvin g at least 50% thickness of the cuff. Bursal sided fraying. No definitive full-thickness tear compo nent. Trace fluid subacromial/subdeltoid bursa may reflect an overlying degree bursitis and/or be se quelae of prior shoulder injection. Correlate clinically. Posterior infraspinatus tendinosis with bursal sided fraying. Chronic partial thickness tearing subscapularis. Question medial subluxed proximal long head biceps tendon fibers with tendinosis and at least partial thickness tearing. Early / mild right glenohumeral joint osteoarthrosis. Trace right glenohumeral joint effusion. The superior right glenoid labrum poorly characterized. Degeneration/tear not excluded on this limited/m otion degraded non-arthrographic examination. Recommendation is obtainment and correlation with plain film radiographs of the right shoulder as non e are available for comparison at the time of this dictation.
== END 2018-12-19 12:10 | disposition home or self-care (01) ==
LOC: RAD 12:09
PROVIDERS: ATTEND Family Medicine
DX: M25.511 Pain in right shoulder (principal); G89.29 Other chronic pain

== ENCOUNTER 2018-12-20 09:02 | Outpatient (CLI) ==
--- NOTE | 2018-12-20 09:53 | DI ---
EXAM: Double contrast upper GI History: GERD. Technique: Patient was given gas crystals. Patient was then given oral barium and multiple spot drew ms of the esophagus, stomach and duodenum were obtained in various projections. Findings: The course and caliber of the esophagus are within normal limits. Diffuse esophageal spas m was seen. A 2.5 cm mid esophageal diverticulum. Gastroesophageal junction is patent. Small hiata l hernia. Trace gastroesophageal reflux was observed during the course of this examination. No obvious ulcerations or polyps are seen within the stomach. The duodenum demonstrates normal cours e and caliber and is without wall thickening. No extravasation of contrast material. Findings: 1. Diffuse esophageal spasm. 2. Mid esophageal diverticulum. 3. Small hiatal hernia with trace gastroesophageal reflux
== END 2018-12-20 09:03 | disposition home or self-care (01) ==
LOC: RAD 09:02
PROVIDERS: ATTEND Family Medicine
DX: K21.9 Gastro-esophageal reflux disease without esophagitis (principal)

== ENCOUNTER 2019-01-05 14:22 | Outpatient (CLI) ==
[2019-01-05 14:38] VITALS: BMI 35.5
== END 2019-01-05 14:25 | disposition critical access hospital (66) ==
LOC: AMBL 14:22
PROVIDERS: ATTEND Internal Medicine
DX: K64.9 Unspecified hemorrhoids (principal)

== ENCOUNTER 2019-01-05 14:33 | Emergency (ER) ==
[2019-01-05 14:38] VITALS: BP 133/75; TEMP 98.3; BMI 35.5
--- NOTE | 2019-01-05 15:22 | ED.PDOC ---
General ED Provider: Dr. 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 HAD A AN EPISODE OF BLEEDING Time Seen by Physician: 14:50 (SEEN WITH ELIER) Mode of Arrival: Ambulance Information Source: Patient, EMT Exam Limitations: No limitations Primary Care Provider: SANJIV MACDONALD Nursing and Triage Documentation Reviewed and Agree: Yes Does patient meet sepsis criteria?: No System Inflammatory Response Syndrome: Not Applicable Sepsis Protocol: For patient's 13 years and over: Temp is 96.8 and below OR 101 and greater Pulse >90 BPM Resp >20/minute Acutely Altered Mental Status Are patient's symptoms suggestive of a new infection, such as: -Pneumonia -Skin, Soft Tissue -Endocarditis -UTI -Bone, Joint Infection -Implantable Device -Acute Abdominal Infection -Wound Infection -Meningitis -Blood Stream Catheter Infection -Unknown GI Complaint Exam - GI Bleed Complaint/Exam Patient Complains of: Reports: Rectal bleeding. Denies: Vomiting blood, Black stools Onset/Duration: 1HR AGO Symptoms Are: Resolved Episodes Lasting: Seconds Severity: Reports: Blood-streaked stool Aggravating: Reports: Bowel movement Alleviating: Reports: None Associated Signs and Symptoms: Denies: Back Pain, Pallor, Dizziness, Weakness, Syncope, Constipation, Nausea, Rectal pain, Bruising, Weight loss, Recent abnormal coags Related History: Reports: Similar episode GI Bleed Risk Factors: Reports: None, Hemorrhoid Recent Colonoscopy: No Recent EGD: No Related Surgical History: Reports: None Abdominal Findings: Present: Other (HEMORRHOID) Differential Diagnoses: Hemorrhoids Review of Systems - Review Of Systems Constitutional: Reports: No symptoms Eyes: Reports: No symptoms Ears, Nose, Mouth, Throat: Reports: No symptoms Respiratory: Reports: No symptoms Cardiac: Reports: No symptoms GI: Reports: Rectal bleeding : Reports: No symptoms Musculoskeletal: Reports: No symptoms Skin: Reports: No symptoms Neurological: Reports: No symptoms Endocrine: Reports: No symptoms Hematologic/Lymphatic: Reports: No symptoms All Other Systems: Reviewed and Negative Past Medical History - Past Medical History Previously Healthy: No (Multiple medical problems) Endocrine: Reports: DM 2 Cardiovascular: Reports: Hypertension, Other (RAPID HEART RATE) Respiratory: Reports: Asthma Hematological: Reports: Anemia Gastrointestinal: Reports: None Genitourinary: Reports: None Neuro/Psych: Reports: Anxiety, Depression, Other (RAPID HEART RATE/NEUROPATHY) Musculoskeletal: Reports: None, Back Pain Cancer: Reports: Other Last Menstrual Period: n/a - Surgical History General Surgical History: Reports: Tubal ligation, Orthopedic (carpaltunnel), Hernia Repair (HERNIA REPAIR (UMBILICAL)), Other (dental) - Family History Family History: Reports: Unknown - Social History Smoking Status: Never smoker Hx Substance Use: No Alcohol Screening: None Physical Exam - Physical Exam Appearance: Well-appearing, No pain distress, Well-nourished Eyes: GARRETT, EOMI, Conjunctiva clear ENT: Ears normal, Nose normal, Oropharynx normal Respiratory: Airway patent, Breath sounds clear, Breath sounds equal, Respirations nonlabored Cardiovascular: RRR, Pulses normal, No rub, No murmur GI/: Soft, Nontender (EXTERNAL HEMORRHOID NOTED NOT THROMBOSED ) Musculoskeletal: Normal strength, ROM intact, No edema, No calf tenderness Skin: Warm, Dry, Normal color Neurological: Sensation intact, Motor intact, Reflexes intact, Cranial nerves intact, Alert, Oriented Psychiatric: Affect appropriate, Mood appropriate Physician Notification - Case Discussed Physician Notified: remy Luu Time of Notification: 15:52 (TRANSFER ) Critical Care Note - Critical Care Note Total Time (mins): 0 Course - Course Vital Signs: Temp Pulse Resp BP Pulse Ox 01/05/19 14:34 98.3 F 90 20 133/75 96 Departure - Departure Time of Disposition: 15:23 Disposition: HOME SELF-CARE Discharge Problem: Bleeding external hemorrhoids Instructions: Hemorrhoids (ED), Rectal Bleeding (ED) Condition: Good Pt referred to PMD for follow-up: Yes IPMP verified?: No Additional Instructions: Please call your Family Physician as soon as possible to schedule a follow-up appointment. Allergies/Adverse Reactions: Allergies codeine Adverse Reaction (Verified 01/05/19 14:38) morphine Adverse Reaction (Verified 01/05/19 14:38) promethazine HCl [From Phenergan] Adverse Reaction (Verified 01/05/19 14:38) Home Medications: Ambulatory Orders Albuterol Sulfate [Proair Hfa] 2 puff IH QID PRN 07/12/13 Diltiazem HCl [Diltiazem ER] 60 mg PO BID 07/12/13 Diphenhydramine HCl [Benadryl] 25 mg PO Q6H PRN 07/12/13 Gabapentin 600 mg PO TID 07/12/13 Hydrocodone/Acetaminophen [Hydrocodon-Acetaminophn 10-325] 1 tab PO Q6HR PRN Lorazepam [Ativan] 1 mg PO BID PRN 07/12/13 Metformin HCl [Glucophage] 500 mg PO BIDWM 07/12/13 Prochlorperazine Maleate [Compazine] 1 tab PO BID PRN 07/12/13 Sennosides/Docusate Sodium [Senna S Tablet] 3 tab PO BID 07/12/13 Cyclobenzaprine HCl [Flexeril] 10 mg PO TID PRN 01/03/17 Fluticasone Propionate [Flonase] 2 spray NS DIRECTED PRN 01/03/17 Furosemide 40 mg PO DAILY 01/03/17 Levothyroxine Sodium [Synthroid] 150 mcg PO DAILY 01/03/17 Losartan/Hydrochlorothiazide [Hyzaar 100-25 Tablet] 1 each PO DAILY 01/03/17 Nizatidine 150 mg PO BID 01/03/17 Tramadol HCl 50 mg PO BID 01/03/17 Insulin Glargine,Hum.rec.anlog [Lantus Solostar] 35 units SQ DAILY 01/26/18 Insulin Glargine,Hum.rec.anlog [Lantus Solostar] 35 units SQ INSULIN EVENING 03/10 Pantoprazole Sodium [Protonix] 20 mg PO DAILY #10 tablet.dr 08/31/18 Potassium Chloride 10 meq PO DAILY #10 tablet.er 08/31/18 Transfer Form Completed: No Disposition Discussed With: Patient
== END 2019-01-05 16:50 | disposition short-term general hospital (02) ==
LOC: ED 14:33
DX: K64.4 Residual hemorrhoidal skin tags (principal); E11.9 Type 2 diabetes mellitus without complications; D64.9 Anemia, unspecified; I10 Essential (primary) hypertension; Z79.899 Other long term (current) drug therapy
CPT/HCPCS: 36415; 80053; 85025; 85610; 85730; 99284

== ENCOUNTER 2019-01-05 16:47 | Outpatient (CLI) ==
[2019-01-05 14:38] VITALS: BMI 35.5
== END 2019-01-05 17:08 | disposition short-term general hospital (02) ==
LOC: AMBL 16:47
PROVIDERS: ATTEND Internal Medicine
DX: K64.9 Unspecified hemorrhoids (principal)

== ENCOUNTER 2019-01-21 10:39 | Outpatient (CLI) | END 2019-01-21 11:07 | disposition short-term general hospital (02) | LOC: AMBL 10:39 | PROVIDERS: ATTEND Internal Medicine | DX: K91.840 Postprocedural hemorrhage of a digestive system organ or structure following a digestive system procedure (principal) ==

== ENCOUNTER 2019-02-19 14:00 | Outpatient (RCR) ==
--- NOTE | 2019-02-08 16:23 | RS.OPPTEV2 ---
Date of Note: 02/08/19 Visit #: 1 Number of visits approved by Insurance: pending Date of Evaluation: 02/08/19 Payer Source: Medicaid Surgery Performed?: No Treatment Diagnosis: R rotator cuff tear, R shld pain, muscle weakness, R shld stiffness. History of Condition/Mechanism of Injury:: Pain began approx 1 year ago, unsure of any specific injury. Noted that felt increased pain after reaching up on high shelf in grocery. Prior Level of Function.....Patient was independent with: ADL's, Self Care, Caregiving, Ambulation/Mobility, Community Integration/Access Functional Limitations: Sleep, Self Care, ADL's, Reaching, Pushing, Pulling, Lifting, Carrying Current Subjective/complaints:: pt states that she hurts with any movement today and "you aren't going to get much from me today." States she thinks she should just wear Treatment Side (optional): Right *Precautions: no electrical modalities due to h/o bone, thyroid and esophageal CA Medical History Medical History: Hypertension, CVA/TIA, COPD, Diabetes, Arthritis, Cancer ( Lumbar spine, thyroid, esophagus currently in remission) Medical History Comments:: Obesity, Neuropathy, Stage 3 Kidney failure-recent findings per patient, asthma, restless leg syndrome Surgical History: Cholecystectomy Surgical History Comments:: Appendectomy,Carpal tunnel release right, thyroidectomy-partial, hemorrhoidectomy Smoking Status: Never smoker Diagnostic Testing/Imaging:: MRI of R shld: 12/19/18. moderately severe R AC joint DJD/osteoarthrosis. diffuse supraspinatus tendinosis. partial thickness tear involving atleast 50% of the cuff. Chronic partial thichness tearing of subscapularis, and biceps tendon Hx Home Medications: lortab and tramadol Patient's Goals: decrease R shld pain Pain Assessment - Pain Description Pain Location: R shld Pain Description: Aching Current Pain Intensity: 8-10/10 Worst Pain Intensity: 10 Functional Outcome Measure UE Functional Index: 34 - G Codes & Severity Modifier G Codes & Modifier: n/a Source of G Code score: n/a Observation - Observation Posture: Forward Head, Rounded Shoulders, Increased Thoracic Kyphosis Handedness: Right Gait - Gait Pattern General Gait Pattern Observation: No Deviations/Normal Gait Comments: pt amb independently without AD General Range of Motion: LUE WFL's. BLE WFL's. RLE elbow wrist and hand WFL's Muscle Strength: LUE 4+/5. BLE 5/5. RUE elbow wrist, hand 3/5 Shoulder ROM: Left WFL's Shoulder Muscle Strength: Left WFL's - Right Shoulder ROM Right Shoulder Flexion: 91 (AAROM) Right Shoulder Abduction: 88 (AAROM) Right Shoulder Internal Rotation: 15 (AAROM) Right Shoulder External Rotation: 18 (AAROM) Right Shoulder ROM Limitations: Soft Tissue Tightness, Muscle Weakness, Pain - Right Shoulder Strength Right Shoulder Flexion: 3- Fair- Right Shoulder Adduction: 3- Fair- Right Shoulder External Rotation: 3- Fair- Right Shoulder Internal Rotation: 3- Fair- - Special Tests Shoulder Empty Can (Supraspinatus) Test: Positive Right Shoulder Speed's Sign Test: Positive Right Shoulder Drop Arm Test: Positive Right Palpation Palpation Findings: Tenderness, Trigger Point, Muscle Guarding Comments:: pt presents with tenderness to R area of biceps, supraspinatus as well as muscle guarding in scapular area with trigger point present on R medial scapula. Sensation - Sensation Right Upper Extremity: Intact/Normal Left Upper Extremity: Intact/Normal Right Lower Extremity: Intact/Normal Left Lower Extremity: Intact/Normal Balance - Sitting Balance Static Sitting Balance: Normal Dynamic Sitting Balance: Normal - Standing Balance Static Standing Balance: Good Dynamic Standing Balance: Good - Heat/Cryotherapy Treatment: Cryotherapy Comments:: R shld Interventions - Exercise/Activities/Manual Therapy Exercises/Activities: pt received passive stretching to R shld. pt is self limiting due to fear of pain requires encouragement to allow PT to perform increased ROM R shld. pt performed pendulum ex with cues for technique, as well as isometric shld abd, add, flex Manual Therapy: NA HOME EXERCISE PROGRAM: pt given written HEP including scapular retraction, pendulum, isometric shld add, abd, flex. Encouraged pt to use ice after ex. - Charges Timed Code Treatment Minutes: 49 Total Treatment Time: 61 Procedures billed for this date of service:: evreina med, cp EVALUATION COMPLEXITY LEVEL EVALUATION COMPLEXITY LEVEL: HISTORY: Medium (DM, HTN, CVA, OA, CA, COPD, R shld pain), EXAM OF BODY SYSTEMS: Medium (pain, strength, ROM, endurance), CLINICAL PRESENTATION: Medium, CLINICAL DECISION MAKING: Medium Assessment Assessment: pt presents with R shld pain with decreased strength, ROM with symptoms consistent with R rotator cuff tear. Feel pt would benefit from skilled PT for therex for ROM, strengthening. pt is self limiting due to fear of pain. Patient Education: Home Exercise Program, Education of Plan of Care Rehab Potential: Good Short Term Goals Goal #1: pt independent with initial HEP Goal to be met by: 02/23/19 Goal #2: Decrease pain < 7/10 R shld Goal to be met by: 02/23/19 Goal #3: Improve R shld flex 98 abd 95, IR 25 ,ER 25 Goal to be met by: 02/23/19 Group Home Goals Goal #1: Improved strength R shld 3/5, elbow flex/ext 3+/5 Goal to be met by: 03/09/19 Goal #2: Improved UE functional score > 40 Goal to be met by: 03/09/19 Goal #3: Improve R shld flex 110 abd 100 IR/ER 35 Goal to be met by: 03/09/19 Goal #4: pt report ability to participate with ADL's with less pain Goal to be met by: 03/09/19 Plan - Treatment to be Provided Procedures: Therapeutic Exercises, Therapeutic Activity, Manual Therapy, Patient Education Modalities: Cryotherapy, Hot Packs - Treatment Plan Frequency: 2 X week Duration: 4 weeks Dates of Group Home Goals: 03/09/19 Expiration date of current Insurance Approval:: pending - Treatment Code (1) Incomplete tear of right rotator cuff Code(s): M75.111 - INCOMPLETE ROTATR-CUFF TEAR/RUPTR OF R SHOULDER, NOT TRAUMA Qualifiers: Rotator cuff tear trauma status: nontraumatic Qualified Code(s): M75.111 - Incomplete rotator cuff tear or rupture of right shoulder, not specified as traumatic (2) Pain in joint, shoulder region Code(s): M25.519 - PAIN IN UNSPECIFIED SHOULDER Qualifiers: Laterality: right Qualified Code(s): M25.511 - Pain in right shoulder (3) Stiffness of joint, not elsewhere classified, shoulder region Code(s): M25.619 - STIFFNESS OF UNSPECIFIED SHOULDER, NOT ELSEWHERE CLASSIFIED (4) Muscle weakness Code(s): M62.81 - MUSCLE WEAKNESS (GENERALIZED)
--- NOTE | 2019-02-14 14:36 | RS.OPPTDN ---
Subjective Date of Note: 02/14/19 Visit #: 2 Number of visits approved by Insurance: Pending, requested 8 Date of Evaluation: 02/08/19 Payer Source: Medicaid Treatment Diagnosis: R rotator cuff tear, R shld pain, muscle weakness, R shld stiffness. Current Subjective/complaints:: States she was sore after her eval. She says she cannot move or lift her arm much at all. States she has tried to use her arm and perform HEP. She says is able to sleep on the R side however and actually prefers it. *Precautions: no electrical modalities due to h/o bone, thyroid and esophageal CA Pain Assessment - Pain Description Pain Location: R shoulder - Heat/Cryotherapy Treatment: Hot Pack (12 mins to the R shoulder in sitting) Interventions - Exercise/Activities/Manual Therapy Exercises/Activities: pt received PROM/gentle stretch to the R shoulder all directions all motions to WFL. Began manual isometrics IR/ER/FLEX/EXT 2x5. 1 # dumbell for wrist flex/ext, sup/pron, biceps/triceps x 10 reps. Intermittent cueing for continuing the exercise as patient falls asleep. Ended with shoulder pulleys for flexion x 10 reps. Total minutes of Exercise: 28 Manual Therapy: NA HOME EXERCISE PROGRAM: pt given written HEP including scapular retraction, pendulum, isometric shld add, abd, flex. Encouraged pt to use ice after ex. - Charges Timed Code Treatment Minutes: 28 Total Treatment Time: 43 Procedures billed for this date of service:: hp, ex2 Assessment: Patient appears to adrián therex well. She is able to relax throughout all motions, falling asleep intermittently. Began light resistive therex for the elbow and wrist. She has initiated HEP as well. Patient Education: Education of diagnosis, Body/Joint mechanics, Home Exercise Program, Education of Plan of Care Patient demonstrates compliance with HEP?: Yes Short Term Goals Goal #1: pt independent with initial HEP Goal to be met by: 02/23/19 Progress towards Goal:: Progressing Goal #2: Decrease pain < 7/10 R shld Goal to be met by: 02/23/19 Goal #3: Improve R shld flex 98 abd 95, IR 25 ,ER 25 Goal to be met by: 02/23/19 [facility] Goals Goal #1: Improved strength R shld 3/5, elbow flex/ext 3+/5 Goal to be met by: 03/09/19 Goal #2: Improved UE functional score > 40 Goal to be met by: 03/09/19 Goal #3: Improve R shld flex 110 abd 100 IR/ER 35 Goal to be met by: 03/09/19 Goal #4: pt report ability to participate with ADL's with less pain Goal to be met by: 03/09/19 Plan Dates of News Operations Manager Goals: 03/09/19 Expiration date of current Insurance Approval:: 03/09/19 PLAN: Patient to continue BIW to increase ROM to the R shoulder and strength
--- NOTE | 2019-02-16 14:02 | RS.OPPTDN ---
Subjective Date of Note: 02/16/19 Visit #: 3 Number of visits approved by Insurance: pending have requested 8 visit Date of Evaluation: 02/08/19 Payer Source: Medicaid Treatment Diagnosis: R rotator cuff tear, R shld pain, muscle weakness, R shld stiffness. Current Subjective/complaints:: pt states that she has been up working in the house this am moving summer and winter clothes around. *Precautions: no electrical modalities due to h/o bone, thyroid and esophageal CA Pain Assessment - Pain Description Pain Location: R shld Pain Description: Aching Current Pain Intensity: 8-08/02 - Heat/Cryotherapy Treatment: Hot Pack Comments:: R shld Interventions - Exercise/Activities/Manual Therapy Exercises/Activities: pt received PROM stretching R shld in all planes. pt attempted isometrics with R shld and was unable to tolerate stating it was "burning" in R shld. Repositioned R UE and pt continued to c/o and states "I can 't do them today." pt performed RUE wrist flex/ext , sup/pron, and elbow flex/ ext x 2 steps of 10 reps. Performed pulleys 2 sets of 10 reps. Total minutes of Exercise: 24 Manual Therapy: NA HOME EXERCISE PROGRAM: pt given written HEP including scapular retraction, pendulum, isometric shld add, abd, flex. Encouraged pt to use ice after ex. - Charges Timed Code Treatment Minutes: 32 Total Treatment Time: 49 Procedures billed for this date of service:: ex 2, hot pack Assessment: pt presents with pain R shld, decreased ability to tolerate ex this visit due to pain. pt symptoms and c/o pain are at times inconsistent. Patient Education: Home Exercise Program, Education of Plan of Care Patient demonstrates compliance with HEP?: Yes Short Term Goals Goal #1: pt independent with initial HEP Goal to be met by: 02/23/19 Progress towards Goal:: Progressing Goal #2: Decrease pain < 7/10 R shld Goal to be met by: 02/23/19 Comments:: 8-08/02 Goal #3: Improve R shld flex 98 abd 95, IR 25 ,ER 25 Goal to be met by: 02/23/19 Progress towards Goal:: Progressing [facility] Goals Goal #1: Improved strength R shld 3/5, elbow flex/ext 3+/5 Goal to be met by: 03/09/19 Goal #2: Improved UE functional score > 40 Goal to be met by: 03/09/19 Goal #3: Improve R shld flex 110 abd 100 IR/ER 35 Goal to be met by: 03/09/19 Goal #4: pt report ability to participate with ADL's with less pain Goal to be met by: 03/09/19 Plan Dates of [facility] Goals: 03/09/19 Expiration date of current Insurance Approval:: pending PLAN: plan to continue to progress with R shld ROM and Ex
--- NOTE | 2019-02-19 15:58 | RS.OPPTDN ---
Subjective Date of Note: 02/19/19 Visit #: 4 Number of visits approved by Insurance: na Date of Evaluation: 02/08/19 Payer Source: Medicaid Treatment Diagnosis: R rotator cuff tear, R shld pain, muscle weakness, R shld stiffness. Current Subjective/complaints:: Patient reports an increase in her mid back pain today. States she is working on HEP and seems to be using the right UE more with daily activities. *Precautions: no electrical modalities due to h/o bone, thyroid and esophageal CA Pain Assessment - Pain Description Pain Location: right shoulder Current Pain Intensity: mild to mod - Heat/Cryotherapy Treatment: Hot Pack ([id number] to the right shoulder and mid back prior to EX. Patient in sitting. ) Interventions - Exercise/Activities/Manual Therapy Exercises/Activities: pt received PROM/stretching of the right shoulder all directions. Isometric IR and ER, multiple reps. Isometric biceps and triceps. 2 # dumbell for resisted right shoulder flexion 3s/5reps, 1# for resisted right shoulder abd 3s/5reps. Additional PROM. Forward punch/press with right UE and 1 # dumbell. Ended with gentle stretching. Total minutes of Exercise: 27mins Manual Therapy: NA HOME EXERCISE PROGRAM: pt given written HEP including scapular retraction, pendulum, isometric shld add, abd, flex. Encouraged pt to use ice after ex. - Objective Findings Observations,measurements,etc.: Right shoulder flex and abd ROM is WFL - Charges Timed Code Treatment Minutes: 27mins Total Treatment Time: 47mins Procedures billed for this date of service:: HP, EX2 Assessment: Patient is progressing well with ROM and light strengthening. Patient Education: Home Exercise Program, Activity Modification Patient demonstrates compliance with HEP?: Yes Short Term Goals Goal #1: pt independent with initial HEP Goal to be met by: 02/23/19 Progress towards Goal:: Progressing Goal #2: Decrease pain < 7/10 R shld Goal to be met by: 02/23/19 Progress towards Goal:: Progressing Goal #3: Improve R shld flex 98 abd 95, IR 25 ,ER 25 Goal to be met by: 02/23/19 Progress towards Goal:: Met Ticket Sorter Goals Goal #1: Improved strength R shld 3/5, elbow flex/ext 3+/5 Goal to be met by: 03/09/19 Goal #2: Improved UE functional score > 40 Goal to be met by: 03/09/19 Goal #3: Improve R shld flex 110 abd 100 IR/ER 35 Goal to be met by: 03/09/19 Goal #4: pt report ability to participate with ADL's with less pain Goal to be met by: 03/09/19 Plan Dates of Ticket Sorter Goals: 03/09/19 Expiration date of current Insurance Approval:: 03/09/19 PLAN: Progress ROM and strengthening of the right UE to increase functional activity level.
== END 2019-02-20 23:59 ==
PROVIDERS: ATTEND Orthopaedic Surgery
DX: M75.111 Incomplete rotator cuff tear or rupture of right shoulder, not specified as traumatic (principal)

== ENCOUNTER 2019-03-02 15:00 | Outpatient (RCR) ==
[2019-01-05 15:48] VITALS: BMI 35.5
--- NOTE | 2019-02-27 10:37 | RS.OPPTDN ---
Subjective Date of Note: 02/23/19 Visit #: 5 Number of visits approved by Insurance: pending Date of Evaluation: 02/08/19 Payer Source: Medicaid Treatment Diagnosis: R rotator cuff tear, R shld pain, muscle weakness, R shld stiffness. Current Subjective/complaints:: Patient reporting improvement in AROM of the right UE. Reports pain limits lifting, but she is increasing light ADL's. *Precautions: no electrical modalities due to h/o bone, thyroid and esophageal CA Pain Assessment - Pain Description Pain Location: right shoulder and upper arm Current Pain Intensity: 0 pain at rest, mod with activity - Heat/Cryotherapy Treatment: Hot Pack ([id number] prior to EX. Patient in sitting. ) Interventions - Exercise/Activities/Manual Therapy Exercises/Activities: PROM/stretching of the right shoulder all directions. Isometric IR and ER, multiple reps. Isometric biceps and triceps. 2# dumbell for resisted right shoulder flexion 3s/5reps, 1# for resisted right shoulder abd 3s/5reps. Yellow theraband for left chest press, retraction, biceps, triceps , IR and ER. Additional PROM. Forward punch/press with right UE and 1# dumbell. Red theraband for scap retraction, 2s/10reps. Total minutes of Exercise: 26mins Manual Therapy: NA HOME EXERCISE PROGRAM: pt given written HEP including scapular retraction, pendulum, isometric shld add, abd, flex. Encouraged pt to use ice after ex. - Objective Findings Observations,measurements,etc.: Right hand billet inspector 16#, then 9# (left hand billet inspector 5#) . Patient demos right shoulder flexion to 152 degrees. - Charges Timed Code Treatment Minutes: 26mins Total Treatment Time: 46mins Procedures billed for this date of service:: HP, EX2 Assessment: Patient progressing with AROM and with light strengthening. Patient Education: Home Exercise Program Patient demonstrates compliance with HEP?: Yes Short Term Goals Goal #1: pt independent with initial HEP Goal to be met by: 02/23/19 Progress towards Goal:: Progressing Goal #2: Decrease pain < 7/10 R shld Goal to be met by: 02/23/19 Progress towards Goal:: Progressing Goal #3: Improve R shld flex 98 abd 95, IR 25 ,ER 25 Goal to be met by: 02/23/19 Progress towards Goal:: [facility] Goals Goal #1: Improved strength R shld 3/5, elbow flex/ext 3+/5 Goal to be met by: 03/09/19 Goal #2: Improved UE functional score > 40 Goal to be met by: 03/09/19 Goal #3: Improve R shld flex 110 abd 100 IR/ER 35 Goal to be met by: 03/09/19 Goal #4: pt report ability to participate with ADL's with less pain Goal to be met by: 03/09/19 Plan Dates of [facility] Goals: 03/09/19 Expiration date of current Insurance Approval:: 03/09/19 PLAN: Progress with exercise to increase strength and ROM with all functional ADL's.
--- NOTE | 2019-02-27 16:35 | RS.OPPTDN ---
Subjective Date of Note: 02/27/19 Visit #: 6 Number of visits approved by Insurance: pending Date of Evaluation: 02/08/19 Payer Source: Medicaid Treatment Diagnosis: R rotator cuff tear, R shld pain, muscle weakness, R shld stiffness. Current Subjective/complaints:: Patient reports she is doing much better with reaching and with light daily activities at home. *Precautions: no electrical modalities due to h/o bone, thyroid and esophageal CA Pain Assessment - Pain Description Pain Location: right shoulder Current Pain Intensity: mild to mod - Heat/Cryotherapy Treatment: Hot Pack ([id number] to the right shoulder prior to EX. Patient in supine. ) Interventions - Exercise/Activities/Manual Therapy Exercises/Activities: PROM/stretching of the right shoulder all directions. Isometric IR and ER, multiple reps. 1# dumbell for resisted right shoulder flexion increased to 3s/10reps, 1# for resisted right shoulder abd 2s/10reps. Increased to red theraband for left chest press, retraction, biceps, triceps, IR and ER. Additional PROM. Forward punch/press with right UE and 1# dumbell. Red theraband for scap retraction, 3s/10reps. Wand for overhead flexion and press. Squeezed ball between hands, then performs overhead flexion. Total minutes of Exercise: 33mins Manual Therapy: NA HOME EXERCISE PROGRAM: pt given written HEP including scapular retraction, pendulum, isometric shld add, abd, flex. Encouraged pt to use ice after ex. - Charges Timed Code Treatment Minutes: 33mins Total Treatment Time: 53mins Procedures billed for this date of service:: HP, EX2 Assessment: Patient progressing well with reaching and with reports of improvement in ADL's. Patient Education: Home Exercise Program Patient demonstrates compliance with HEP?: Yes Short Term Goals Goal #1: pt independent with initial HEP Goal to be met by: 02/23/19 Progress towards Goal:: Met Goal #2: Decrease pain < 7/10 R shld Goal to be met by: 02/23/19 Progress towards Goal:: Met Goal #3: Improve R shld flex 98 abd 95, IR 25 ,ER 25 Goal to be met by: 02/23/19 Progress towards Goal:: Met Ticket Worker Goals Goal #1: Improved strength R shld 3/5, elbow flex/ext 3+/5 Goal to be met by: 03/09/19 Goal #2: Improved UE functional score > 40 Goal to be met by: 03/09/19 Goal #3: Improve R shld flex 110 abd 100 IR/ER 35 Goal to be met by: 03/09/19 Progress towards goal: Met Goal #4: pt report ability to participate with ADL's with less pain Goal to be met by: 03/09/19 Progress towards goal: Progressing Plan Dates of Ticket Worker Goals: 03/09/19 Expiration date of current Insurance Approval:: 03/09/19 PLAN: Progress exercise to increase functional use of the right UE with all ADL' s.
--- NOTE | 2019-03-06 16:33 | RS.OPPTDN ---
Subjective Date of Note: 03/02/19 Visit #: 7 Number of visits approved by Insurance: pending Date of Evaluation: 02/08/19 Payer Source: Medicaid Treatment Diagnosis: R rotator cuff tear, R shld pain, muscle weakness, R shld stiffness. Current Subjective/complaints:: Patient reports she is doing better. States she will continue HEP. She reports having better ROM, but expects to have pain in the right shoulder with increased activity. *Precautions: no electrical modalities due to h/o bone, thyroid and esophageal CA Pain Assessment - Pain Description Pain Location: right shoulder Current Pain Intensity: mod, can go up at 7/10 at times - Heat/Cryotherapy Treatment: Hot Pack ([id number] to the right shoulder joint prior to EX. Patient in sitting. ) Interventions - Exercise/Activities/Manual Therapy Exercises/Activities: PROM/stretching of the right shoulder all directions. Isometric IR and ER, multiple reps. 1# dumbell for resisted right shoulder flexion increased to 3s/10reps, 1# for resisted right shoulder abd 2s/10reps. Increased to red theraband for left chest press, retraction, biceps, triceps, IR and ER. Additional PROM. Forward punch/press with right UE and 1# dumbell. Red theraband for scap retraction, 3s/10reps. Reveiwed wand for overhead flexion and press. Reviewed HEP and safety with ADL's. Total minutes of Exercise: 31mins Manual Therapy: NA HOME EXERCISE PROGRAM: pt given written HEP including scapular retraction, pendulum, isometric shld add, abd, flex. Encouraged pt to use ice after ex. - Objective Findings Observations,measurements,etc.: Patient demos full right shoulder flexion and ROM WFL with all other motions. She demos 4 to 4+/5 MMT with right shoulder flexion in limited ranges. - Charges Timed Code Treatment Minutes: 31mins Total Treatment Time: 51mins Procedures billed for this date of service:: HP, EX2 Assessment: Patient has progressed well and has met 5 of 7 STG's. Shewill continue HEP after discharge. Patient Education: Body/Joint mechanics, Home Exercise Program, Home Safety, Activity Modification, Education of Plan of Care Patient demonstrates compliance with HEP?: Yes Short Term Goals Goal #1: pt independent with initial HEP Goal to be met by: 02/23/19 Progress towards Goal:: Met Goal #2: Decrease pain < 7/10 R shld Goal to be met by: 02/23/19 Progress towards Goal:: Met Goal #3: Improve R shld flex 98 abd 95, IR 25 ,ER 25 Goal to be met by: 02/23/19 Progress towards Goal:: Met Production Repairer Goals Goal #1: Improved strength R shld 3/5, elbow flex/ext 3+/5 Goal to be met by: 03/09/19 Progress towards goal: Met Goal #2: Improved UE functional score > 40 Goal to be met by: 03/09/19 Progress towards goal: Progressing Goal #3: Improve R shld flex 110 abd 100 IR/ER 35 Goal to be met by: 03/09/19 Progress towards goal: Met Goal #4: pt report ability to participate with ADL's with less pain Goal to be met by: 03/09/19 Progress towards goal: Progressing Plan Dates of Fpc Goals: 03/09/19 Expiration date of current Insurance Approval:: 03/09/19 PLAN: Discharge with HEP.
--- NOTE | 2019-03-06 16:35 | RS.QUICKDC ---
Discharge from PT Date of Discharge: 02/24/17 Number of Visits: 9 Reason for Discharge: Patient progressed well and met 5 of 7 goals. She demonstrated good right shoulder ROM and functional strength. She continued to have pain with activity, but stated she expects that. She will continue HEP. Discharge at this time.
== END 2019-03-23 23:59 ==
PROVIDERS: ATTEND Orthopaedic Surgery
DX: M75.111 Incomplete rotator cuff tear or rupture of right shoulder, not specified as traumatic (principal)